=== PATIENT | male | born 1935 | race Caucasian/White ===

== ENCOUNTER 2016-10-18 18:15 | Inpatient (IN) | payer MEDICARE, BC ==
[~2016-10-18] VITALS: Ht 172.7 cm; Wt 77.5 kg
--- NOTE | ~2016-10-18 | ECHO ---
Transthoracic Echocardiography Report (TTE) Demographics Patient Name AMANDA OTT Date of Study 10/21/2016 Patient Number [id number] Visit Number [id number] Date of 1935 Room Number G6231 Gender Male Number Age 81 year(s) Referring Kathe Lake Publisher Assistant Marie RVT, RDCS Physician Rhina Physician Interpreting Meghan Cummings Naphthalene Operator Physician Sakina Horan MD Supervising Ordering Meghan Cummings MD/MLP Physician Nurse Stress Suppression Crew Leader Conclusions Contractility Score Summary Normal Left Ventricular contractility was noted. Summary Normal LV/RV size and systolic function. Moderate concentric left ventricular hypertrophy. Diastolic assessment reveals Grade I diastolic dysfunction. Bubble study performed with no obvious atrial shunting. Small calcific nodule noted on the right coronary cusp of AV, likely secondary to degenerative changes. Procedure Type of Study TTE procedure:2D Echocardiogram, M-Mode, Doppler , Color Doppler. Procedure Date Date: 10/21/2016 Start: 09:43 AM Study Location: Inpatient Portable Technical Quality: Adequate visualization Indications:CVA. Appropriate Use Criteria: 9 Patient Status: Routine HR: 82 bpm BP: 161/79 mmHg M-Mode/2D Measurements LV Diastolic Dimension: 4 cm LV Systolic Dimension: 2.31 cm LV Septum Diastolic: 1.58 cm LV PW Diastolic: 1.21 cm AO Root Dimension: 2.9 cm Cardiac Output: 2.46 l/min AV Cusp Separation: 1.7 cm RV Diastolic Dimension: 2.01 cm LA volume: 7 ml LVOT: 1.7 cm RV Base: 2.54 cm LVOT VTI: 13.2 cm RV Mid: 2.89 cm LV Stroke volume: 29.95 ml TAPSE: 2.39 cm TDI-S': 35.4 cm/s Doppler Measurements AV Peak Velocity: 0.92 m/s MV Peak E-Wave: 0.61 m/s AV Peak Gradient: 3.36 mmHg MV Peak A-Wave: 0.57 m/s AV Mean Gradient: 2 mmHg MV E/A Ratio: 1.07 LVOT Peak Velocity: 0.64 m/s MV P1/2t: 88 msec PV Peak Velocity: 1.05 m/s E' Septal Velocity: 0.07 m/s PV Peak Gradient: 4.41 mmHg E' Lateral Velocity: 0.09 m/s A' Septal Velocity: 0.1 m/s A' Lateral Velocity: 0.11 m/s Findings Left Ventricle Moderate concentric left ventricular hypertrophy. Diastolic assessment reveals Grade I diastolic dysfunction. Right Ventricle Normal right ventricle structure and function. Left Atrium Normal left atrial size. Bubble study performed with no obvious atrial shunting. Right Atrium Normal right atrial size. Mitral Valve Normal mitral valve structure and function. Aortic Valve AV sclerosis. Small calcific nodule noted on the right coronary cusp of AV, likely secondary to degenerative changes. Tricuspid Valve Normal tricuspid valve structure and function. Pulmonic Valve PV is grossly normal. Pericardial Effusion No evidence of pericardial effusion. Epicardial fat pad noted. Pleural Effusion No evidence of pleural effusion. Contractility Score LV regional wall motion:(0-Non visualized 1-Normal 2-Hypokinesis 3-Akinesis 4-Dyskinesis 5-Aneurysm) Signature dtt: GALINA AL dtd: 10/21/16 0943 Physician Self Edit
--- NOTE | ~2016-10-18 | CON ---
PATIENT'S NAME: AMANDA OTT [facility] AGE: 81 Y [address] ROOM: [address] [address] LOCATION: [facility] ADMIT DATE: 10/18/2016 Consultation DISCHARGE DATE: FAMILY PHYSICIAN: PHYSICIAN, UNKNOWN ATTENDING PHYSICIAN: Lake AYOUB DATE OF CONSULTATION: 10/19/2016 DATE AND TIME: 10/19/2016 at 10:45 a.m. CHIEF COMPLAINT: Stroke alert, status post tPA. HISTORY OF PRESENT ILLNESS: The patient is an 81-year-old gentleman who was transferred here from [facility], post tPA. According to the family, the patient was seen shortly before 3 o'clock today. He went down to the mailbox and the family found him down, trying to get out of his car and he states he had sudden weakness in the left extremities. The patient was taken expediently to [place], [place] Emergency Department. He was found to have left lower extremity and left upper extremity weakness around a 3/5 and left facial droop. His CT of head was done, which was negative and his INR was 1. tPA was given. His blood pressure remained stable throughout the treatment. Teleneurology was consulted for the tPA decision. The patient was transferred here for further care. He is currently alert, and oriented x3. He is in no acute distress. He denies headache, vision changes, chest pain, shortness of breath, abdominal pain, nausea, or vomiting, or any visual disturbances. MEDICAL HISTORY: Diabetes mellitus type 2, hypertension, hyperlipidemia. SURGICAL HISTORY: The patient states he has had an ear surgery. FAMILY HISTORY: Brother has diabetes. Sister has diabetes. SOCIAL HISTORY: Denies smoking. He is retired before his halfway age. 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 MEDICATIONS: On the JUL and have been reviewed by me. PATIENT'S NAME: AMANDA OTT [facility] AGE: 81 Y [address] ROOM: [address] [place] [id number] LOCATION: [facility] ADMIT DATE: 10/18/2016 Consultation DISCHARGE DATE: FAMILY PHYSICIAN: PHYSICIAN, UNKNOWN ATTENDING PHYSICIAN: Lake AYOUB REVIEW OF SYSTEMS: All systems have been reviewed and are negative except for what is mentioned in the HPI. PHYSICAL EXAM: VITAL SIGNS: Temperature 98.5, blood pressure 164/86, heart rate 94, respiratory rate 18, and saturating 96% on room air. GENERAL APPEARANCE: The patient is alert and awake in no acute distress. HEENT: Normocephalic and atraumatic. NECK: Supple without JVD. No carotid bruits auscultated. CHEST: Clear to auscultation bilaterally. HEART: Regular rate and rhythm. No murmurs, rubs, or gallops. ABDOMEN: Soft, nontender, nondistended with positive bowel sounds. NEUROLOGICAL: His stroke scale is as such, level of consciousness 0; month and age 0; obeys commands 0; best gaze 1; visual field testing 2; facial paresis 1; motor function left arm 1, right arm 0, left leg 0, right leg 2, limb ataxia 0, sensory 0, language 0, dysarthria 1, extinction and inattention 1. For a total NIH stroke scale of 9. He is alert and oriented x3. His pupils are equal and reactive. Currently, he is bedrest so his gait was not assessed. His language seems fluid and he asked appropriate questions. While I am sitting there dictating, he does appear to be slightly impulsive and tried to get out of bed. DIAGNOSTICS: We do have an LDL which shows a reading of 55. We are going to get an MRI/MRA head and neck. We will get a [address] ASSESSMENT AND PLAN: 1. Stroke. We will continue with the stroke workup, ordering an echo 2D with bubble study. We will also obtain an MRI/MRA head and neck. The LDL is completed for this patient. In addition, we will get PT, OT, and Speech along with Dr. Redding to evaluate the patient. We will follow up on these findings tomorrow. The plan of care was developed in conjunction with Dr. Tilley. It was discussed with the hospitalist group. The patient's sons were in the room and were part of the discussion also. Thank you for the opportunity to participate in this patient's care. If you have any questions, please do not hesitate to notify us. MARIE MCCALLUM APRN FOR ELIS TILLEY MD PP/modl PATIENT'S NAME: AMANDA OTT [facility] AGE: 81 Y [address] ROOM: [place] [address] LOCATION: [facility] ADMIT DATE: 10/18/2016 Consultation DISCHARGE DATE: FAMILY PHYSICIAN: PHYSICIAN, UNKNOWN ATTENDING PHYSICIAN: Lake AYOUB /[id number] d: 10/20/16 1533 t: 10/25/16 1728, CONSULTATION REPORT
--- NOTE | ~2016-10-18 | CON ---
PATIENT'S NAME: AMANDA PETERS [facility] AGE: 81 Y [address] ROOM: [place] [address] LOCATION: [facility] ADMIT DATE: 10/18/2016 Consultation DISCHARGE DATE: FAMILY PHYSICIAN: PHYSICIAN, UNKNOWN ATTENDING PHYSICIAN: Lake AYOUB REFERRING PHYSICIAN: Ceasar Davison MD CARDIOLOGY CONSULT REFERRING PHYSICIAN: SANJAY Blancas. REASON FOR CONSULT: The patient with CVA. HISTORY OF PRESENT ILLNESS: Mr. Peters is a pleasant 81-year-old gentleman, who was transferred here from [place], [place], with stroke-like symptoms, status post tPA. According to the family, the patient had a fall, and he developed weakness in the left upper and lower extremity. He was taken to the Emergency Department. Subsequently, he received tPA. The patient recovered strength in his left upper and lower extremity, however, later developed weakness on the right lower extremity, and again on the left upper and lower extremity. In view of recurrent possible CVA, Cardiology was consulted to look for cardioembolic source for CVA. The patient denied any chest pain. No previous history of CVA prior to these episodes. REVIEW OF SYSTEMS: The patient denied any chest pain. No history of palpitations. No history of shortness of breath. He stated he was physically very active before. No history of nausea or vomiting. No history of diarrhea or constipation. PAST MEDICAL HISTORY: Diabetes mellitus, hypertension, hyperlipidemia. PAST SURGICAL HISTORY: The patient apparently had ear surgery. FAMILY HISTORY: His brother has diabetes and a sister also has diabetes. SOCIAL HISTORY: The patient denied any smoking. No history of recent alcohol abuse. MEDICATIONS: As per MAR. PATIENT'S NAME: AMANDA PETERS [facility] AGE: 81 Y [address] ROOM: [address] [address] LOCATION: [facility] ADMIT DATE: 10/18/2016 Consultation DISCHARGE DATE: FAMILY PHYSICIAN: PHYSICIAN, UNKNOWN ATTENDING PHYSICIAN: Lake AYOUB CURRENT MEDICATIONS: In the hospital include: 1. Hydralazine. 2. Atorvastatin. 3. Insulin. PHYSICAL EXAMINATION: GENERAL: On examination, he is awake, alert, and oriented and in no distress. VITAL SIGNS: His pulse rate is 88 beats per minute, blood pressure is 166/75 mmHg, respiratory rate 16, temperature 97.6. HEENT: His head is atraumatic and normocephalic. The patient appears to have left 7th nerve palsy. NECK: No significant jugular venous distention is present. CARDIOVASCULAR: S1, S2 are audible. They are regular in rate and rhythm. Grade 2/6 ejection systolic murmur is audible. RESPIRATORY: Bilateral vesicular breath sounds are audible. ABDOMEN: Soft, nontender. Bowel sounds are present. EXTREMITIES: Showed no significant pedal edema. NEUROLOGIC: The patient has strength of 4/5 in all 4 extremities. He is awake; however, he is not oriented in time or place. He is oriented in person. He follows simple commands. LABORATORY DATA: Sodium 141, potassium 3.9, chloride 107, CO2 of 24, glucose 200, BUN 13, creatinine 1.1. AST 26, ALT 25, total cholesterol 135, HDL 56, LDL 55. White blood cell count 8.7, hemoglobin 13.5, platelet count 180. IMAGING DATA: MRA and MRI of the brain reported subacute ischemic infarct with hemorrhagic transformation in the right middle cerebral territory, 4.5 cm right frontal infarct, 4.3 cm right parietal infarct, tiny infarct involving right frontal lobe, Precentral gyrus, tiny intraventricular hemorrhage. ASSESSMENT: 1. Acute CVA with right frontal and parietal infarct and small intraventricular hemorrhage. 2. Hypertension. 3. Diabetes mellitus. PLAN: 1. Cardiology was consulted to evaluate for cardiac source of emboli. We will do 2D echocardiogram to evaluate valve and cardiac function. The patient has been having some dysphagia according to the family. We will do swallowing evaluation, and then consider SERGIO for further evaluation. The risks and benefits of SERGIO were explained to the patient and his PATIENT'S NAME: AMANDA PETERS [facility] AGE: 81 Y [address] ROOM: [place] [address] LOCATION: [facility] ADMIT DATE: 10/18/2016 Consultation DISCHARGE DATE: FAMILY PHYSICIAN: PHYSICIAN, UNKNOWN ATTENDING PHYSICIAN: Lake AYOUB, and they are agreeable to proceed. We will consider SERGIO depending on transthoracic echocardiogram findings and following swallowing evaluation. The patient has mild hypertension, however, in view of recent CVA, we will hold off on aggressive antihypertensive medications. Continue to monitor the patient on telemetry. The plan of care was discussed with the patient and his family. We will follow the patient along with you. Thank you for allowing us in taking part in the care of this pleasant patient. MD LLOYD TODD/connie /[id number] d: 10/20/16 2259 t: 11/07/16 1736, CONSULTATION REPORT
--- NOTE | ~2016-10-18 | ECHO ---
Transesophageal Echocardiography Report (SERGIO) Demographics Patient Name AMANDA OTT Date of Study 10/23/2016 Patient Number [id number] Visit Number [id number] Date of 1935 Room Number G6231 Accession Number [id number] Gender Male Age 81 year(s) Referring Kathe Bethea Mathematics Instructor Juvencio Guzman RVT, Physician SIGRID Physician Interpreting Meghan Cummings Vehicle Assembler Physician Supervising Ordering Physician Tone Watts APRN, MD/MLP Nurse Stress Motor Brakeman Conclusions Summary Transesophageal echocardiogram was done under general anesthesia without difficult probe placement . The estimated left ventricular ejection fraction is 60-65%. Moderate concentric hypertrophy. There is no LA or LA appendage thrombus or spontaneous contrast. Aneurysmal interatrial septum. Negative bubble study. Mild mitral regurgitation by color Doppler. Degenerative changes on the mitral valve The aortic valve is mildly sclerotic. There is mild aortic regurgitation by color Doppler. Pulmonary valve is mildly sclerotic The aortic root appears mildly dilated. The maximum diameter measures 3.9 cm. Mild thoracic aorta plaque. Procedure Type of Study SERGIO procedure Procedure Date Date: 10/23/2016 Start: 08:44 AM Study Location: Inpatient Portable Technical Quality: Adequate visualization Indications:CVA. Appropriate Use Criteria: 8 Patient Status: Routine Rhythm: NSR HR: 115 bpm BP: 171/74 mmHg SERGIO Performed By: the attending and the deck scaler Findings Left Ventricle Moderate concentric hypertrophy. Left Atrium There is no LA or LA appendage thrombus or spontaneous contrast. Right Atrium Aneurysmal interatrial septum. Negative bubble study. Mitral Valve Mild mitral regurgitation by color Doppler. Degenerative changes on the mitral valve Aortic Valve The aortic valve is mildly sclerotic. There is mild aortic regurgitation by color Doppler. Pulmonic Valve Pulmonary valve is mildly sclerotic Miscellaneous The aortic root appears mildly dilated. The maximum diameter measures 3.9 cm. Mild thoracic aorta plaque. Signature dtt: SCOTT BROOKS dtd: 10/23/16 0844 Physician Self Edit
--- NOTE | ~2016-10-18 | DS ---
PATIENT'S NAME: AMANDA OTT [facility] AGE: 81 Y [address] ROOM: [place] [address] LOCATION: [facility] ADMIT DATE: 10/18/2016 Discharge Summary DISCHARGE DATE: 10/24/2016 FAMILY PHYSICIAN: Physician, Unknown ATTENDING PHYSICIAN: Lake AYOUB PRIMARY DIAGNOSES: 1. 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 2. Status post thrombolysis with tPA. 3. Intraventricular hemorrhage. 4. Accelerated hypertension. 5. Left hemiplegia. 6. Dyslipidemia. 7. Diabetes mellitus type 2. OPERATIONS/PROCEDURES: MRI scan without contrast performed 10/19/2016 and MRA obtained on the same date demonstrated ischemic areas involving the right lateral frontal lobe and right parietal lobe measuring 4.3 and 4.5 cm respectively. Hemorrhagic transformation with a small intraventricular hemorrhage was also noted. HISTORY OF PRESENTING ILLNESS/REASON FOR REMISSION: Please refer to the H and P dictated 10/18/2016. HOSPITAL COURSE: The patient was admitted to hospital as noted above after being transferred from outside facility following tPA administration for stroke symptoms. The patient was admitted to [facility] as described above. Teleneurology was consulted. The patient had received tPA administration at an outside facility at the direction of Teleneurology there. He was monitored in the ICU here. He was demonstrating left-sided hemiplegia and left-sided neglect. Repeat imaging studies did demonstrate hemorrhagic transformation as described above. He was otherwise hemodynamically stable. No surgical intervention was recommended. He did receive physical therapy, occupational therapy, and speech therapy evaluations. He also had physiatry evaluation and Teleneurology did continue to follow. Because of the imaging findings described above, Neurosurgery was consulted. No indication for surgery was found. His clinical condition gradually improved. He continued to receive supportive cares and clinical monitoring. Blood sugars were managed with insulin per sliding scale protocol. His blood pressures remained moderately hypertensive PATIENT'S NAME: AMANDA OTT [facility] AGE: 81 Y [address] ROOM: [place] [address] LOCATION: [facility] ADMIT DATE: 10/18/2016 Discharge Summary DISCHARGE DATE: 10/24/2016 FAMILY PHYSICIAN: Physician, Unknown ATTENDING PHYSICIAN: Lake AYOUB and were managed with IV hydralazine on an as-needed basis. His regimen was gradually titrated to include beta-buddy therapy and Norvasc therapy. He tolerated that well. By the end of the 6th day of his hospital stay, it was felt he would be stable enough for discharge to the inpatient rehab for continued therapy and restorative care. DISCHARGE INSTRUCTIONS: 1. Diet: ADA 2000 calorie per day as tolerated. 2. Activity: As tolerated. He will have physical therapy, occupational therapy evaluations ongoing. MEDICATIONS: 1. Amlodipine 10 mg p.o. daily. 2. Atorvastatin 80 mg p.o. daily. 3. Insulin NovoLog per mild sliding scale. 4. Levemir insulin 20 units subcu q.h.s. 5. Metoprolol 12.5 mg p.o. b.i.d. 6. Acetaminophen 650 mg p.o. q.6 h. p.r.n. pain or fever. 7. Glucagon 1 mg subcu p.r.n. hypoglycemia. 8. Dextrose 50% 1 amp p.r.n. hypoglycemia. 9. Glucose tabs 16 g p.o. p.r.n. hypoglycemia. FOLLOW UP: He will have follow up on the Inpatient Rehab Service by Dr. Redding and continued follow up and management by the hospitalist team. CONDITION ON DISCHARGE: Fair. Total time spent on discharge process is 45 minutes. MD RADHIKA ADLER/connie /[id number] d: 10/25/16 0424 t: 11/07/16 1812, DISCHARGE SUMMARY
--- NOTE | ~2016-10-18 | HP ---
PATIENT'S NAME: AMANDA OTT [facility] AGE: 81 Y [address] ROOM: [place] [address] LOCATION: [facility] ADMIT DATE: 10/18/2016 History & Physical DISCHARGE DATE: FAMILY PHYSICIAN: PHYSICIAN, UNKNOWN ATTENDING PHYSICIAN: Lake AYOUB DATE OF SERVICE: CHIEF COMPLAINT: Stroke. HISTORY OF PRESENT ILLNESS: The patient is an 81-year-old gentleman, who presents here from [place], [place] with stroke-like symptoms status post tPA. The patient was found down by a mailbox today around 3:00 p.m. According to family, last time he was found normal shortly before that. Apparently, the patient was driving to his mailbox and when he was trying to get out of his car, he had sudden weakness in the left extremities. The patient was taken to the emergency department at [place], [place]. He was found to have left lower extremity and left upper extremity weakness, 3/5 motor strength, and left facial droop. CT head was done, CT head was negative. INR was 1. Blood pressure was stable. Teleneurology was consulted and the patient was given tPA. The patient was transferred here to our facility for further care. The patient is currently alert and oriented, in no acute distress. He denies chest pain, shortness of breath, abdominal pain, nausea, vomiting, weakness, dizziness, and headache. MEDICAL HISTORY: Diabetes mellitus type 2, hypertension, hyperlipidemia. SURGICAL HISTORY: The patient reports that he has some sort of ear surgery. FAMILY HISTORY: Brother has diabetes mellitus. Sister also have diabetes mellitus. SOCIAL HISTORY: Denies smoking. He is retired before his shelter. 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 MEDICATIONS: Has been reconciled currently. REVIEW OF SYSTEMS: All systems have been reviewed and are negative except for what I mentioned in HPI. PATIENT'S NAME: AMANDA OTT [facility] AGE: 81 Y [address] ROOM: [place] [address] LOCATION: [facility] ADMIT DATE: 10/18/2016 History & Physical DISCHARGE DATE: FAMILY PHYSICIAN: PHYSICIAN, UNKNOWN ATTENDING PHYSICIAN: Lake AYOUB PHYSICAL EXAMINATION: VITAL SIGNS: Temperature 98.5, blood pressure 176/96, heart rate 96, respiratory rate 18, and satting 95% on room air. GENERAL APPEARANCE: The patient is alert and awake, in no acute distress. HEAD: Normocephalic and atraumatic. EYES: Extraocular muscles intact. NOSE: No nasal discharge. EARS: No ear discharge. ORAL CAVITY: Moist oral mucosa. NECK: Supple. CHEST: Clear to auscultation bilaterally. HEART: Regular rate and rhythm. No murmurs, rubs, or gallops. ABDOMEN: Soft, nontender, and nondistended. Bowel sounds present. MUSCULOSKELETAL: Range of motion intact. SKIN: Warm to touch. ABDOMEN: Soft, nontender, and nondistended. COMPO CASTER: The patient is alert and oriented x2 not oriented to time. Motor and sensory grossly intact. Upper motor strength 5/5. Lower motor strength 5/5 and visual field intact. LABORATORY DATA: Labs from outside hospital; sodium 142, potassium 4.2, creatinine 1, CO2 of 21, and blood glucose 273. INR 1, hemoglobin 13.6, white blood cell count of 9, and platelet 184. ASSESSMENT AND PLAN: 1. Cerebrovascular accident status post tPA. tPA was given within the window. The patient is currently back to baseline. Motor strength back to normal. Initially, his motor strength in the left extremity was 3/5 in both upper and lower, now is 5/5. No facial droop and visual carlton intact. We will continue tPA. Post tPA treatment will hold the blood pressure below 180. If needed, we will start the patient on nicardipine drip. 2. Repeat CT head in the morning. 3. We will acquire neuro consult via neuro tele. Serial neuro exam. We will keep patient in the ICU for 24 hours. 4. Diabetes mellitus. We will start the patient on SSI with aspart. We will hold oral medication for now. 5. Hypertension. We will blood pressure medication and to keep the systolic blood pressure below 180. If it is high, we will start nicardipine drip. 6. Hyperlipidemia. We will start the patient on Lipitor 80 mg daily. Greater than 70 minutes was spent on patient care. Assessment and plan was discussed with the patient and nephew. All questions were answered. We will PATIENT'S NAME: AMANDA OTT [facility] AGE: 81 Y [address] ROOM: [place] [id number] LOCATION: [facility]ICU ADMIT DATE: 10/18/2016 History & Physical DISCHARGE DATE: FAMILY PHYSICIAN: PHYSICIAN, UNKNOWN ATTENDING PHYSICIAN: Lake AYOUB admit the patient to ICU for post tPA care. MD LIVIER KHANNA/connie /[id number] D: [id number] T: [id number] HISTORY & PHYSICAL
--- NOTE | ~2016-10-18 | CON ---
PATIENT'S NAME: AMANDA OTT [facility] AGE: 81 Y [address] ROOM: [place] [id number] LOCATION: [facility] ADMIT DATE: 10/18/2016 Consultation DISCHARGE DATE: FAMILY PHYSICIAN: PHYSICIAN, UNKNOWN ATTENDING PHYSICIAN: Lake ARCHULETA Consult for Dr. Archuleta, hospitalist. This is an 81-year-old gentleman who tells me he lives alone, but has nieces and nephews close by that can help, was admitted on 10/18/2016 with stroke like symptoms involving left side, upper and lower extremity weakness with left facial droop. As per history and physical, tPA was given and as per history, he was found by his med box unable to get up and was taken to the local hospital. CT scan was done, which showed no gross abnormality. However, his left side upper and lower extremities were at 3/5 muscle strength. He is currently alert, fairly well oriented to the person, but not to the place and time. His voice is clear and not wet. He has left-sided weakness with facial droop. He is apraxic with his mouth and tongue, has left-side neglect also. 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 At the present time, his muscle strength is about 3 to 3+. Left lower extremity a little bit better than left upper extremity. Otherwise deep tendon reflexes are present and equal throughout. He has good bowel and bladder control. Chest is clinically clear. Heart regular, sinus rhythm. No similar history in past. MEDICATIONS: As follows: 1. Hydrogel 0.9%. 2. Lipitor. 3. Insulin as per protocol, mild scale. 4. Glucagon. 5. Dextrose. 6. Glucose. 7. Nitropress. 8. Cardene. PATIENT'S NAME: NAMRATA [facility] AGE: 81 Y [address] ROOM: [address] [place] [id number] LOCATION: [facility] ADMIT DATE: 10/18/2016 Consultation DISCHARGE DATE: FAMILY PHYSICIAN: PHYSICIAN, UNKNOWN ATTENDING PHYSICIAN: Laek ARCHULETA ASSESSMENT AND PLAN: At the present time, the patient will be started on PT, OT, Speech. I feel that this man will benefit from intensive rehab, for about 2 weeks or so, aiming to discharge modified independent to home. Thank you for this referral. All the above was explained to him and I am ready to explain to his family. MD KATARZYNA HERNADEZ/modl /[id number] d: 10/20/16 1139 t: 10/22/16 0714, CONSULTATION REPORT
[2016-10-18 19:51] LABS: BASOPHIL # 0.1 K/uL (0.0-0.2); BASOPHIL % 0.9 %; EOSINOPHIL # 0.1 K/uL (0.0-0.5); EOSINOPHIL % 1.1 %; HEMATOCRIT 40.4 % (33.0-50.0); HEMOGLOBIN 13.7 g/dL (11.0-16.0); IMMATURE GRANULOCYTE % 0.3 %; LYMPHOCYTE # 1.5 K/uL (0.8-4.0); LYMPHOCYTE % 15.1 %; MCH 29.3 pg (27.0-34.0); MCHC 33.9 gm/dL (32.0-36.5); MCV 86.5 fl (83.0-98.0); MONOCYTE # 0.9 K/uL (0.0-1.0); MONOCYTE % 8.9 %; MPV 11.8 fl (9.4-12.4); NEUTROPHIL # (ANC) 7.3 K/uL (1.4-9.0); NEUTROPHIL % 73.7 %; NRBC % 0 /100WBC (0-0.00); PLATELET COUNT 187 K/uL (150-450); RBC 4.67 M/uL (3.50-5.50); RDW-CV 13.1 % (11.9-14.6); WBC 9.9 K/uL (4.0-11.0)
[2016-10-18 20:10] LABS: ALBUMIN 3.8 gm/dL (3.5-5.0); CALCIUM 9.2 mg/dL (8.5-10.5); CREATININE 1.2 mg/dL (0.6-1.3); TOTAL BILIRUBIN 0.5 mg/dL (0.0-1.5); TOTAL PROTEIN 7.1 g/dL (6.0-8.4)
--- NOTE | 2016-10-19 04:47 | NUR ---
Significant Event: Patient admitted to ICU at 1901 via air transport. A/O on admission, following commands, slight left sided weakness. Slight drift to LUE et LLE. Speech slightly slurred, slight left facial drooping. Left sided gaze neglect. TPa administered in flight, gtt finished prior to arrival. Improvement noted t/o shift in regards to left sided drift et weakness. SR, HR in the 70s, SBP 130-170s. Afebrile. Continues on RA with SpO2 mid 90s. Failed bedside nurse swallow study, remains NPO. Follow up: Continue. CT 24hrs post TPa administration.
--- NOTE | 2016-10-19 07:45 | NUR ---
OT: Will evaluate on 10/20/16 as able d/t s/p TPA 10/18/16 Jennifer OTR/L
--- NOTE | 2016-10-19 08:24 | NUR ---
ROUTINE CONSULT FOR CVA ED NOTED. WILL COMPLETE APPROPRIATE PRIOR TO DISMISSAL.
[2016-10-19] MEDS ORDERED: AMARYL4 MG PO (10:15)
[2016-10-19] MEDS ORDERED: TENORMIN50 MG PO (10:15)
[2016-10-19] MEDS ORDERED: ZOCOR20 MG PO (10:15)
[2016-10-19] MEDS ORDERED: ZESTRIL30 MG PO (10:16)
[2016-10-19] MEDS ORDERED: GLUCOPHAGE500 MG PO (10:16)
[2016-10-19] MEDS ORDERED: NORVASC5 MG PO (10:17)
--- NOTE | 2016-10-19 15:22 | NUR ---
Significant Event: PT A&O x3, forgetful. VSS, on room air. Follows commands, slight weakness to L)arm and R)leg, visual defecits. Speech slightly slurred. Briefs on for incontinence. Remains NPO. Is to have MRI and CT at 1700. Follow up:
[2016-10-19 19:51] LABS: BASOPHIL # 0.1 K/uL (0.0-0.2); BASOPHIL % 0.9 %; EOSINOPHIL # 0.1 K/uL (0.0-0.5); EOSINOPHIL % 1.5 %; HEMATOCRIT 40.5 % (33.0-50.0); HEMOGLOBIN 13.6 g/dL (11.0-16.0); IMMATURE GRANULOCYTE % 0.4 %; LYMPHOCYTE # 1.5 K/uL (0.8-4.0); LYMPHOCYTE % 19.5 %; MCHC 33.6 gm/dL (32.0-36.5); MCV 86.4 fl (83.0-98.0); MONOCYTE # 0.7 K/uL (0.0-1.0); MONOCYTE % 9.2 %; MPV 11.4 fl (9.4-12.4); NEUTROPHIL # (ANC) 5.4 K/uL (1.4-9.0); NEUTROPHIL % 68.5 %; NRBC % 0 /100WBC (0-0.00); PLATELET COUNT 177 K/uL (150-450); RBC 4.69 M/uL (3.50-5.50); RDW-CV 12.9 % (11.9-14.6); WBC 7.9 K/uL (4.0-11.0)
[2016-10-19 19:59] LABS: INR - (THERAPEUTIC) 1.03 (0.92-1.07); PROTIME 10.8 SECONDS (9.8-11.4); PTT 26 SECONDS (25-32)
[2016-10-19 20:13] LABS: ALBUMIN 3.6 gm/dL (3.5-5.0); ALK PHOS 70 IU/L (33-138); ALT 25 IU/L (12-78); ANION GAP 13.9 (10.0-19.0); AST 26 IU/L (10-40); BLOOD UREA NITROGEN 12 mg/dL (6-24); CALCIUM 8.9 mg/dL (8.5-10.5); CHLORIDE 108 mMol/L (96-110); CO2 25 mMol/L (22-32); ESTIMATED GFR (MDRD EQUATION) > 60; POTASSIUM 3.9 mMol/L (3.7-5.1); SODIUM 143 mMol/L (135-145); TOTAL PROTEIN 6.9 g/dL (6.0-8.4)
[2016-10-19 20:15] LABS: TOTAL BILIRUBIN 0.8 mg/dL (0.0-1.5)
--- NOTE | 2016-10-20 02:27 | NUR ---
Patient arrived to unit at 2100 accompanied by staff. S/P tPA at 1700 10/19. VSS. Afebrile. Alert and oriented x3-slow to react and needs cueing. Can be impulsive at times. QUINAULT-does have a left cochlear implant. NPO. Heavy 2A. Room air clear. 98.0-69-95%-153/70-0/10-18. HI/LO bed. Recieved report from ICU nurse Kelle.
--- NOTE | 2016-10-20 04:57 | NUR ---
Significant Event: FIRST ASSESSMENT PATIENT WAS ALERT AND ORIENTED X3. SECOND ALERT TO PERSON/PLACE. THIRD ALERT AND ORIENTED TO PERSON. FOLLOWS ALL COMMANDS-DOES NEED CUEING. BECAME MORE RESTLESS THROUGHOUT THE NIGHT-COOPERATIVE. LEFT SIDED WEAKNESS. NIHSS-8. DENIES DAWSON AND PAIN. SR-NING. KEEP SBP IN THE RANGE OF 130-160'S, PRN HYDRALAZINE. EDEMA TO LOWER EXTREMITIES. ROOM AIR-CLEAR. NPO-NEED TO HAVE DIET ADDRESSED. BEDREST-NEED TO HAVE ACTIVITY ADDRESSED. PIV's IN THE RIGHT FA AND LEFT AC-SL'D. MULTIPLE ABRASIONS AND BRUISING. H&H'S-CALL IF HGB IS LESS THAN OR EQUAL TO 7. ACCU CHECKS ACHS-MILD SLIDING SCALE. Follow up: 2D ECHO WITH BUBBLE STUDY TODAY.
[2016-10-20 05:57] LABS: BASOPHIL # 0.1 K/uL (0.0-0.2); EOSINOPHIL # 0.1 K/uL (0.0-0.5); EOSINOPHIL % 1.5 %; HEMATOCRIT 41.4 % (33.0-50.0); HEMOGLOBIN 13.9 g/dL (11.0-16.0); IMMATURE GRANULOCYTE % 0.2 %; LYMPHOCYTE # 1.6 K/uL (0.8-4.0); LYMPHOCYTE % 18.7 %; MCHC 33.6 gm/dL (32.0-36.5); MCV 86.4 fl (83.0-98.0); MONOCYTE # 0.8 K/uL (0.0-1.0); MONOCYTE % 9.1 %; MPV 11.3 fl (9.4-12.4); NEUTROPHIL % 69.5 %; NRBC % 0 /100WBC (0-0.00); PLATELET COUNT 180 K/uL (150-450); RBC 4.79 M/uL (3.50-5.50); RDW-CV 12.8 % (11.9-14.6); WBC 8.7 K/uL (4.0-11.0)
[2016-10-20 06:09] LABS: ANION GAP 13.9 (10.0-19.0); BLOOD UREA NITROGEN 13 mg/dL (6-24); CALCIUM 8.6 mg/dL (8.5-10.5); CHLORIDE 107 mMol/L (96-110); CO2 24 mMol/L (22-32); CREATININE 1.1 mg/dL (0.6-1.3); ESTIMATED GFR (MDRD EQUATION) > 60; POTASSIUM 3.9 mMol/L (3.7-5.1); SODIUM 141 mMol/L (135-145)
[2016-10-20 08:11] LABS: HEMATOCRIT 39.3 % (33.0-50.0); HEMOGLOBIN 13.5 g/dL (11.0-16.0)
--- NOTE | 2016-10-20 13:57 | NUR ---
Significant Event: PT ALERT; DISORIENTED TO PLACE/YEAR. APHASIC. PERRLA. FOLLOWS COMMANDS WITH CUEING. STROKE SCALE 8. L)SIDE REMAINS WEAKER THAN R)SIDE; L)EYE/FACIAL DROOP; L)VISION IMPAIRMENT. MOVES ALL EXTREMITIES. VITAL SIGNS STABLE; TO KEEP SBP BETWEEN 130-160. LOWER EXTREMITY EDEMA. INCONTINENT URINE. LAST BM ON 10/17/16. CARDIAC DIET ORDERED WITH THIN LIQUIDS THIS AFTERNOON. ORDER WAS JUST WRITTEN THAT PT MAY BE ACTIVITY TOLERATED; HAS NOT BEEN OUT OF BED. HEAVY 2-ASSIST TO TURN IN BED. AC/HS ACCUCHECKS WITH MILD SLIDING SCALE. BILATERAL CALF PUMPS ON. IV TO R)FA AND L)AC SALINE LOCKED. SKIN TEARS TO R)ARM/HAND; L)HEAD ABRASION; SCATTERED BRUISING. DENIES ANY PAIN. HI-LO BED IN PLACE; HAS NOT BEEN IMPULSIVE THIS SHIFT. Follow up: CONTINUE TO MONITOR
[2016-10-21 06:05] LABS: BASOPHIL # 0.1 K/uL (0.0-0.2); BASOPHIL % 0.7 %; EOSINOPHIL # 0.1 K/uL (0.0-0.5); EOSINOPHIL % 0.9 %; HEMATOCRIT 42.1 % (33.0-50.0); HEMOGLOBIN 14.5 g/dL (11.0-16.0); IMMATURE GRANULOCYTE % 0.3 %; LYMPHOCYTE # 1.6 K/uL (0.8-4.0); LYMPHOCYTE % 18.5 %; MCH 29.4 pg (27.0-34.0); MCHC 34.4 gm/dL (32.0-36.5); MCV 85.4 fl (83.0-98.0); MONOCYTE % 11.4 %; MPV 11.6 fl (9.4-12.4); NEUTROPHIL % 68.2 %; NRBC % 0 /100WBC (0-0.00); PLATELET COUNT 194 K/uL (150-450); RBC 4.93 M/uL (3.50-5.50); RDW-CV 12.6 % (11.9-14.6); WBC 8.8 K/uL (4.0-11.0)
[2016-10-21 06:22] LABS: ANION GAP 13.9 (10.0-19.0); BLOOD UREA NITROGEN 17 mg/dL (6-24); CALCIUM 8.9 mg/dL (8.5-10.5); CHLORIDE 107 mMol/L (96-110); CO2 22 mMol/L (22-32); CREATININE 1.1 mg/dL (0.6-1.3); ESTIMATED GFR (MDRD EQUATION) > 60; POTASSIUM 3.9 mMol/L (3.7-5.1); SODIUM 139 mMol/L (135-145)
--- NOTE | 2016-10-21 07:20 | NUR ---
Significant Event: Patient is alert and oriented to self. Does follow commands with cueing. Left sided weakness-slight left eye/facial droop. Denies DAWSON, pain, and N/T. PERRLA. MINTO. Sinus-dannie, keep SBP between 130-160, 5mg PRN hydralazine given one time. Room air. Cardiac diet. Last BM 10/20-bowels are active x4. Will use urinal and is incontinent. Heavy 2A. PIV's in L) AC and R) FA-sl'd. Accu checks ACHS-mild sliding scale. Follow up:2D echo. GIRP when ready.
--- NOTE | 2016-10-21 16:14 | NUR ---
ULTRA HIGH FALL RISK TANANA Significant Event: A/O X1, forgetful, 1 assist/gait belt/walker, ambulates in portillo w/ PT, up in chair, needs cueing, follows commands, L)sided weakness, L)vision impaired, good appetite. incontinent at times, NIHSS=9, ECHO/Bubble Study today, luther D/I to skin tears to LUE, saline lock R)FA & L)AC, family @ bedside today, Follow up: NPO p MN for SERGIO accuchecks, plan for GIRP when ready
--- NOTE | 2016-10-22 05:00 | NUR ---
Significant Event: Patient is alert and oriented to person. Does occassionally know who the president is. Follows commands with continous cueing. VSS. PERRLA. NIHSS-6. Left visual impairment and left sided weakness. Slightly apashic. Sinus rhythm. HTN- to keep SBP between 130-160. 2+ edema and thready pulses. Room air. Diabetic diet-accu checks ACHS-mild sliding scale. Last BM 10/21-bowels are active x4. Occassionally incontinent of urine. Up with 1-2a GB and walker. PIV in R) post FA. Skin tears to left hand, FA, and elbow-dressings are C/D/I. Takes pills whole with water. Follow up: GIRP when ready.
--- NOTE | 2016-10-22 12:25 | NUR ---
Significant Event:PT IS ALERT TO PERSON. WILL OCCASIONALLY TELL ME HE IS IN [place]. KNOWS HE IS IN A HOSPITAL. VISION IMPAIRMENT NOTED IN LEFT SIDE. NIHSS 8. FOLLOWS COMMANDS. NEEDS LOTS OF QUES FOR DIRECTIONS. CLEAR LUNG SOUNDS ON RA. ACTIVE BS. IV SL'D. SKIN TEAR X3 TO LEFT ARM. ACHS ACCU CHECKS. TO HAVE SERGIO TOMORROW. NPO AT [place]. Follow up:ALARMS
--- NOTE | 2016-10-22 14:18 | NUR ---
Introduced self and role of care management to patient. He lives in [facility] by himself. He states that he is normally able to do all his own ADL's. He states that he has family that live close by that assist if needed. We discussed discharge plans. I explained that I could get him to our inpatient rehab unit on 10/24. He is in agreement with [facility]. I did ask if I needed to call and updated any of his family. He stated "no I will be talking with them later today." He denies any needs at this time. Will continue to follow.
--- NOTE | 2016-10-23 05:25 | NUR ---
Significant Event: Patient is alert and oriented to person. Follows commands with cueing. VSS. Denies DAWSON, pain, or N/T. PERRLA. NIH-7. [place]. SR- to keep SBP between 130-160. This shift patient was tachycardic-called hospitalist and got the order to give scheduled lopressor with a SBP of 135 d/t the HR in the one-teen's. Heart rate has been WNL since. Room air. NPO since midnoc. Last BM 10/22-active x4. 1A gb/walker. PIV in right FA. Follow up: 10/23-SERGIO. Plan is GIRP on .
[2016-10-23 06:37] LABS: ALBUMIN 3.3 gm/dL (3.5-5.0); ANION GAP 11.9 (10.0-19.0); BLOOD UREA NITROGEN 19 mg/dL (6-24); CALCIUM 8.4 mg/dL (8.5-10.5); CHLORIDE 109 mMol/L (96-110); CO2 23 mMol/L (22-32); CREATININE 1.1 mg/dL (0.6-1.3); ESTIMATED GFR (MDRD EQUATION) > 60; POTASSIUM 3.9 mMol/L (3.7-5.1); SODIUM 140 mMol/L (135-145)
--- NOTE | 2016-10-23 13:54 | NUR ---
Significant Event:PT IS ALERT TO SELF. NIHSS 6. NO C/O NUMBNESS OR TINGLING. FOLLOWS COMMANDS. L) VISION IMPAIRED. UP WITH 1A GB WALKER. CLEAR LUNG SOUNDS ACTIVE BS. HAD SERGIO TODAY. FAMILY STATED THE MD TOLD HIM EVERYTHING WAS OKAY. ADA DIET. ACHS ACCU CHECKS. INCREASED NORVASC TODAY. PLANS FOR GIRP TOMORROW. Follow up:ALARMS
--- NOTE | 2016-10-23 14:35 | NUR ---
A-SCREENED D/T LOS PLAN TO D/C TO GIRP TOMORROW HT: 68 IN. WT: 78.4 KG. BMI: 86.6 LABS REVIEWED; ALB 3.3 MEDS: LEVEMIR, NOVOLOG (MILD SS), APRESOLINE DIET RX: DIABETIC. PO INTAKE 50-100%; AVG 88% SINCE ADMIT EST NUTR NEEDS: 2588-5851 KCALS (25-30 KCALS/KG) 78-86 GM PROTEIN (1.0-1.1 GM/KG) 1 ML FLUID/KCAL D-NOT AT NUTRITION RISK; NO NUTRITION DX IDENTIFIED I-CONTINUE W/CURRENT DIET RX M/E-WILL ASSIST NEEDED
--- NOTE | 2016-10-24 03:46 | NUR ---
Significant Event:Patient alert and oriented to self, disoriented to place/time. Follows commands, but needs frequent cueing. Aphasic at times. NIHSS 6. Up with hands on 1 assist/gb/walker. No c/o pain. Denies DAWSON. Moves all extremeties spontaneously and to command. Left side slightly weaker than right. Left side facial droop. PIV saline locked rt forearm. Contient and incontient at times. Impulsive at times. On hi/lo bed. Accuchecks ac/hs with hs sugar of 229. Follow up:Probable GIRP today.
--- NOTE | 2016-10-24 07:47 | NUR ---
PATIENT IS 81 YEAR OLD MALE. 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 WHEN HE WAS GETTING HIS MAIL HE HAD FALLEN. HAD BEEN HAVING LEFT SIDE WEAKNESS AND LEFT FACIAL DROOP HAD BEEN NOTED. WAS GIVEN TPA AT PREVIOUS HOSP[facility] AND THEN TRANSFERED HERE. WHERE IT WAS FOUND THAT THE PATIENT HAD A BLEED WELL. IN ICU. NO SURGERY NEEDED SO THEN TRANSFERED TO NTU. HE IS ALERT TO PERSON ONLY. FORGETFUL. HAD L) VISION IMPAIRMENT. DOES NOT C/O NUMBNESS OR TINGLING. LEFT ARM AND LEG ARE SLIGHTLY WEAKER. DOES FOLLOW COMMANDS BUT NEEDS CUEING. NIHSS TODAY WAS A 6. CLEAR LUNG SOUNDS ON RA ACTIVE BS. BM YESTERDAY. CONTINENT/ INCONTINENT. UP 1A GB WALKER HAND ON. HEALING SKIN TEAR TO LEFT FOREARM AND HAND. ABRASION TO LEFT SHOULDER, LEFT SIDE HEAD AND L) HIP. ACHS ACCUCHECKS. PLANS FOR GIRP TODAY
== END 2016-10-24 10:09 | DRG 64 ==
LOC: GICU 19:16 → GNTU 19:16
PROVIDERS: Family Medicine; Physician Assistant; ADMIT Internal Medicine
PROC: F00ZJWZ Instrumental Swallowing and Oral Function Assessment using Swallowing Equipment (ICD-10-PCS; principal; 2016-10-19)
PROC: B246ZZZ Ultrasonography of Right and Left Heart (ICD-10-PCS; 2016-10-21)
PROC: B246ZZ4 Ultrasonography of Right and Left Heart, Transesophageal (ICD-10-PCS; 2016-10-23)
DX: I63.411 Cerebral infarction due to embolism of right middle cerebral artery (principal); I61.5 Nontraumatic intracerebral hemorrhage, intraventricular; G81.94 Hemiplegia, unspecified affecting left nondominant side; E78.5 Hyperlipidemia, unspecified; I10 Essential (primary) hypertension; E11.65 Type 2 diabetes mellitus with hyperglycemia; Z92.82 Status post administration of tPA (rtPA) in a different facility within the last 24 hours prior to admission to current facility; I69.392 Facial weakness following cerebral infarction
CPT/HCPCS: J0360; J7030

== ENCOUNTER → 2016-10-18 | Outpatient (CLI) | payer MEDICARE, BC ==
[~2016-10-18] MED LIST: AMARYL4 MG PO; ASPIRIN (CHILDR81 MG PO; GLUCOPHAGE500 MG PO; NORCO 5-325 TA1 EACH PO; NORVASC5 MG PO; TENORMIN50 MG PO; ZESTRIL30 MG PO; ZOCOR20 MG PO
== END | disposition disaster alternative care site (69) ==
LOC: GAIR 18:20
DX: I63.9 Cerebral infarction, unspecified (principal); E11.9 Type 2 diabetes mellitus without complications; I10 Essential (primary) hypertension; R53.1 Weakness; R29.810 Facial weakness; R26.89 Other abnormalities of gait and mobility
CPT/HCPCS: A0422; A0431; A0436; J2405

== ENCOUNTER 2016-10-24 10:24 | Inpatient (IN) | payer MEDICARE, BC ==
[~2016-10-24] VITALS: Ht 172.7 cm; Wt 75.6 kg
--- NOTE | ~2016-10-24 | CON ---
PATIENT'S NAME: PEDRO OTT [facility] AGE: 81 Y [address] ROOM: [address] [place], [place] [address] LOCATION: [facility]IRP ADMIT DATE: 10/24/2016 Consultation DISCHARGE DATE: 11/20/2016 FAMILY PHYSICIAN: Physician, Unknown ATTENDING PHYSICIAN: Tito Carranza DATE OF CONSULTATION: 11/19/2016 REFERRING PHYSICIAN: Lake Archuleta MD Team members reporting include Dr. Carranza; Torri Barlow, outreach and education social worker, Gosia Bellamy RN; Destiny Jaramillo, PT; Linda Mathias, PT; Mary Kate Ward, OT; Elidia Lee, Speech Therapy; Lizette Arthur, therapeutic rec; and Sister Malini Salmeron, pastoral Care. CURRENT STATUS: Pedro is an 81-year-old man, admitted to our inpatient rehab unit following a CVA. He is continent of bowel, occasionally incontinent of bladder. No skin or pain issues. He is on a consistent carbohydrate diet. Intake is good. The patient can complete all of his transfers at standby. He can ambulate 300 feet at standby to contact guard assistance with tactile cues as well as verbal cues. He can climb 12 stairs with 2 railings at contact guard assistance. He scored a 34 on the Staton balance test. He has met 2/5 short- term PT goals. The patient can dress his upper and lower body at minimal assistance; grooming, standby; bathing, contact guard assistance; toilet and shower transfers, contact guard assistance; and toileting, contact guard assistance. He continues to have left inattention. He has met 2/13 long-term OT goals. The patient's comprehension is at minimal assistance. Language and expression, standby. Memory, max to moderate assistance, and problem solving, minimal assistance. His car transfers are currently at standby to contact guard assistance. He has been very open to pastoral care. DISCHARGE PLAN: The patient is receiving 3 hours of PT, OT, and speech Friday through Friday. The patient has daily rehab, nursing, and physiatry involvement as well as therapeutic recreational services 4 days per week. The patient has shown functional improvement and is progressing. Please see his plan of care for specific goals. Plan is for patient to discharge on November 20, 2016. The patient is going to [facility] in [place], [place] for swing bed. TORRI BARLOW FOR TITO CARRANZA MD PATIENT'S NAME: PEDRO OTT [facility] AGE: 81 Y [address] ROOM: [place] [address] LOCATION: [facility] ADMIT DATE: 10/24/2016 Consultation DISCHARGE DATE: 11/20/2016 FAMILY PHYSICIAN: Physician, Unknown ATTENDING PHYSICIAN: Tito Carranza TD/evelynl /[id number] d: 12/06/162320 t: 12/23/16 1411, CONSULTATION REPORT
--- NOTE | ~2016-10-24 | HP ---
PATIENT'S NAME: AMANDA OTT [facility] AGE: 81 Y [address] ROOM: [place] [address] LOCATION: [facility] ADMIT DATE: 10/24/2016 History & Physical DISCHARGE DATE: FAMILY PHYSICIAN: PHYSICIAN, UNKNOWN ATTENDING PHYSICIAN: Elvira Redding DATE OF SERVICE: This 81-year-old gentleman is admitted for continuous medical treatment and intensive rehabilitation. 1. Unstable gait. 2. Dependent in activities of daily self-care. 3. 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 Admitted for continuous medical treatment and intensive rehabilitation. He is, at the present time, very alert and oriented. Vitals on admission, blood pressure 160/70, temperature 98.7, pulse 88, and respiration rate 18. He is 5 feet 8 inches tall and weighs 77.5 kg. ALLERGIES: NO KNOWN DRUG ALLERGIES. PER HISTORY, HE HAD SUDDEN ONSET OF LEFT-SIDED WEAKNESS OF UPPER AND LOWER EXTREMITY WITH LEFT FACIAL DROOP, AND HE WAS, PER HISTORY, GIVEN TPA; HOWEVER, HE WAS FOUND TO HAVE A TRANSFORMATION TO RIGHT MIDDLE CEREBRAL ARTERY DISTRIBUTION OF HEMORRHAGIC STROKE ALSO. HE IS, AT THE PRESENT TIME, SHOWING MARKED FATIGUE WITH DIFFICULTY TO TOLERATE ACTIVITY. HOWEVER, HE REQUIRES FREQUENT CUING FOR THE TASK AT HAND. HE HAS DIFFICULTY STANDING AND WALKING AT THE PRESENT TIME. PAST MEDICAL HISTORY: 1. Diabetes, type 2. 2. Hypertension. 3. Dyslipidemia. At the present time, he is on ADA 1800-calorie regular-consistency diet. In a.m., we will send for CBC, CMS, prealbumin, Accu-Chek a.c. and h.s., and hemoglobin A1c. He will be put on PT, OT, and speech 3 hours per day, 15 hours per week, for the coming about maybe 2 to 3 weeks, aiming to discharge home at [facility]. PATIENT'S NAME: AMANDA OTT [facility] AGE: 81 Y [address] ROOM: [place] [address] LOCATION: [facility] ADMIT DATE: 10/24/2016 History & Physical DISCHARGE DATE: FAMILY PHYSICIAN: PHYSICIAN, UNKNOWN ATTENDING PHYSICIAN: Elvira Redding MEDICATIONS: He is, at the present time, on the following medications: 1. Norvasc 10 mg p.o. daily. 2. Lipitor 80 mg p.o. daily. 3. NovoLog insulin sliding scale per protocol. 4. Levemir 20 units subcu at bedtime. 5. Lopressor 12.5 mg p.o. twice daily. 6. Tylenol 650 q.6 hours, do not exceed acetaminophen 4 g q.24 hours. 7. Dextrose 50% 25 mL IV p.r.n. for hypoglycemia. 8. Glucagon 1 mg subcu for hypoglycemia p.r.n. 9. Glucose 16 g p.o. for hypoglycemia p.r.n. 10. Lovenox was added upon admission on 10/24/2016 at 60 mg subcu daily. At the present time, we will put on intensive rehab, PT, OT, and speech 3 hours per day, 15 hours per week, for the coming 2 to 3 weeks, aiming to discharge on modified independence, and follow on outpatient basis. All the above was explained to him in detail. He verbalized understanding and agreement. ELVIRA REDDING MD WMS/modl /[id number] D: [id number] T: [id number] HISTORY & PHYSICAL
--- NOTE | ~2016-10-24 | CON ---
PATIENT'S NAME: PEDRO OTT [facility] AGE: 81 Y [address] ROOM: [place] [address] LOCATION: [facility] ADMIT DATE: 10/24/2016 Consultation DISCHARGE DATE: FAMILY PHYSICIAN: PHYSICIAN, UNKNOWN ATTENDING PHYSICIAN: Tito Carranza DATE OF CONSULTATION: 11/05/2016 REFERRING PHYSICIAN: Lake AYOUB MD Team members reporting include Dr. Carranza; Torri Barlow, social media content manager; Melissa Zuluaga, RN; Linda Mathias, PT; Destiny Jaramillo, PT; Mary Kate Ward, OT; Elidia Lee, Speech Therapy; Lizette Arthur, therapeutic rec; and Sister Malini Potts, Pastoral Care. CURRENT STATUS: Pedro is an 81-year-old man, admitted to our inpatient rehab unit following a stroke with left facial droop. He does have some apraxia. The patient is incontinent of bowel and bladder. No skin or pain issues. He is on a consistent carbohydrate diet. Continues Glucerna every day to maintain nutritional status. The patient can transfer sit to supine and supine to sit at standby with extra cues and time. [id number] standby assistance with modeling done. He is able to ambulate 150 feet with a front-wheeled walker at contact guard assistance. Has difficulty turning. He can climb 12 stairs with 2 railings at contact guard assistance and cues. He scored a 28/56 on the Staton Balance test. He has met 4/7 short-term PT goals. The patient can dress his upper body at standby; lower body, min; grooming, standby; bathing, contact guard assistance; toilet and shower transfers, contact guard assistance; and toileting, contact guard assistance. Home management tasks are currently at contact guard assistance. He was able to make toast and did some gardening and watering plants. He has met 3/5 short-term OT goals. The patient's comprehension is at minimal assistance. Language and expression, standby. Memory, max to moderate assistance. Problem solving, needs cues for verbal reasoning. The patient can complete car transfers at contact guard assistance. He has been given a memory book. Visual scanning when they took him out for his car transfer and a ride in the car were poor. The patient is open to Pastoral Care. No pharmacy concerns at this time. DISCHARGE PLAN: The patient is receiving 3 hours of PT, OT, and Speech Friday through Friday. The patient has daily rehab, nursing, and physiatry involvement as well as therapeutic recreational services 4 days per week. The patient has shown functional improvement and is progressing. Please see his plan of care for specific goals. Plan is for the patient to discharge in approximately 2 weeks. Plan is for the patient to discharge to a skilled level of care. PATIENT'S NAME: PEDRO OTT [facility] AGE: 81 Y [address] ROOM: [place] [address] LOCATION: [facility] ADMIT DATE: 10/24/2016 Consultation DISCHARGE DATE: FAMILY PHYSICIAN: PHYSICIAN, UNKNOWN ATTENDING PHYSICIAN: Tito Carranza TORRISARAH BARLOW FOR TITO CARRANZA MD TD/modl /[id number] d: 11/18/161946 t: 12/06/16 1235, CONSULTATION REPORT
--- NOTE | ~2016-10-24 | CON ---
PATIENT'S NAME: PEDRO OTT [facility] AGE: 81 Y [address] ROOM: [place] [address] LOCATION: [facility] ADMIT DATE: 10/24/2016 Consultation DISCHARGE DATE: FAMILY PHYSICIAN: PHYSICIAN, UNKNOWN ATTENDING PHYSICIAN: Tito Carranza DATE OF CONSULTATION: 11/12/2016 REFERRING PHYSICIAN: Lake AYOUB MD Team members reporting include Dr. Carranza; Torri Barlow, web content & social media manager; Hawa Childers RN; Destiny Jaramillo, PT; Linda Mathias, PT; Mary Kate Ward, OT; Elidia Lee, Speech Therapy; Lizette Arthur, therapeutic rec; and Sister Malini Potts pastoral Care. CURRENT STATUS: Pedro is an 81-year-old man, admitted to our inpatient rehab unit following a CVA. The patient is on a consistent carbohydrate diet. He is continuing his Glucerna every day to maintain his nutritional status. He can transfer sit to supine and supine to sit at standby; sit to stand, standby, and bed to chair, chair to bed, standby assistance. He is walking 300 feet with a front-wheeled walker at standby assistance. Overall, the patient's cognition is severely impaired. He can climb 12 stairs with 2 railings at contact guard assistance. He needs manual help to go around corners when he is walking. He has met 2/5 short-term PT goals. The patient can dress his upper body at standby; lower body, minimal. Grooming contact guard assistance to standby. Bathing contact guard assistance. Toileting contact guard assistance. He does have left inattention. He perseverates at times. Comprehension is at minimal to moderate assistance. Language and expression, minimal to moderate assistance. Memory, moderate assistance. Car transfers are currently at contact guard assistance. He has difficulty distinguishing between his left and right and his recall is poor. He has been open to pastoral care. No pharmacy concerns. DISCHARGE PLAN: The patient is receiving 3 hours of PT, OT, and speech Friday through Friday. The patient has daily rehab, nursing, and physiatry involvement as well as therapeutic recreational services 4 days per week. The patient has shown functional improvement in his progressing. Please see his plan of care for specific goals. Plan is for the patient to discharge in approximately 7 days. Plan is for the patient to go to a intermediate facility closer to home near [place], [place]. TORRI BARLOW FOR TITO CARRANZA MD PATIENT'S NAME: PEDRO OTT [facility] AGE: 81 Y [address] ROOM: [place] [address] LOCATION: [facility] ADMIT DATE: 10/24/2016 Consultation DISCHARGE DATE: FAMILY PHYSICIAN: PHYSICIAN, UNKNOWN ATTENDING PHYSICIAN: Tito Carranza TD/evelnyl /[id number] d: 11/18/162003 t: 12/06/16 1237, CONSULTATION REPORT
--- NOTE | ~2016-10-24 | CON ---
PATIENT'S NAME: PEDRO OTT [facility] AGE: 81 Y [address] ROOM: [place] [address] LOCATION: [facility] ADMIT DATE: 10/24/2016 Consultation DISCHARGE DATE: FAMILY PHYSICIAN: PHYSICIAN, UNKNOWN ATTENDING PHYSICIAN: Tito Carranza DATE OF CONSULTATION: 10/29/2016 REFERRING PHYSICIAN: [place] Team members reporting include Dr. Carranza; Torri Barlow, social studies teacher; Melissa Zuluaga RN; Destiny Jaramillo, PT; Linda Mathias, PT; Mary Kate Ward, OT; Elidia Lee, Speech Therapy; Lizette Arthur, therapeutic rec; and Sister Malini Potts, Pastoral Care. CURRENT STATUS: Pedro is an 81-year-old man, admitted to our inpatient rehab unit following a CVA. The patient also has a history of diabetes mellitus type 2, hypertension, and hyperlipidemia. The patient has significant left-sided neglect. The patient is incontinent of bowel and bladder. His bottom is red. No pain issues. He can transfer sit to supine at contact guard assistance; supine to sit, minimal assistance. He can ambulate 150 feet hand-held assistance, minimal to moderate assistance; and he can climb 4 stairs with minimal assistance. His upper body dressing is at max to minimal assistance; lower body dressing, dependent; grooming, contact guard assistance; bathing contact guard assistance; toilet and shower transfers, minimal assistance; and toileting, contact guard assistance. Feeding is currently at standby. It is noted that the patient has been having more confusion. He is having visual deficits that are severe. He does follow some directions, but has difficulty paying attention to task and is very distractible. His comprehension is at minimal assistance. Language and expression, minimal assistance. Memory and problem solving, max assistance. Car transfers have not been done yet. The patient has been very open to pastoral care. No pharmacy concerns. DISCHARGE PLAN: The patient is receiving 3 hours of PT, OT, and speech Friday through Friday. The patient has daily rehab, nursing, and physiatry involvement as well as therapeutic recreational services 4 days per week. The patient has shown functional improvement and is progressing. Please see his plan of care for specific goals. Plan is for the patient to discharge in approximately 2 weeks. Plan is for the patient to go to [facility] as the patient will be unable to return to home due to his left-sided neglect. PATIENT'S NAME: PEDRO OTT [facility] AGE: 81 Y [address] ROOM: [place] [address] LOCATION: [facility] ADMIT DATE: 10/24/2016 Consultation DISCHARGE DATE: FAMILY PHYSICIAN: PHYSICIAN, UNKNOWN ATTENDING PHYSICIAN: Tito Carranza FOR TITO CARRANZA MD TD/modl /[id number] d: 11/04/16 1445 t: 12/06/16 1232, CONSULTATION REPORT
--- NOTE | ~2016-10-24 | DS ---
PATIENT'S NAME: AMANDA OTT [facility] AGE: 81 Y [address] ROOM: [place] [address] LOCATION: [facility] ADMIT DATE: 10/24/2016 Discharge Summary DISCHARGE DATE: FAMILY PHYSICIAN: Physician, Unknown ATTENDING PHYSICIAN: Elvira Redding [facility] COURSE: This 81-year-old gentleman was admitted to rehab unit at [facility] on 10/24/2016, is discharged to go to [facility] swing bed on 11/20/2016. 1. He was admitted with unstable gait. 2. Dependent in activities of daily self-care. 3. Left-sided weakness secondary to ischemic stroke with left facial droop and difficulty with talking and the ischemic stroke transformed into hemorrhagic stroke. 4. He did well. He is now able to comprehend, express himself; however, he is severely forgetful. VITAL SIGNS: Blood pressure 116/72, temperature 97.1, pulse 84, respiratory rate 16. He is able to ambulate 250 feet x1 with standby assistance and contact guard assistance. He needs to be reminded at all times, otherwise, he is very forgetful. He is at the present time to continue with PT, OT, and speech and be followed by the local physician. No followup with me. He must follow up with the local physician as soon as possible. He is on the following medications: 1. Norvasc 10 mg p.o. daily. 2. Aspirin 81 mg p.o. daily. 3. Lipitor 80 mg p.o. daily. 4. NovoLog insulin sliding scale, mild scale. 5. Levemir 12 units subcu every night. 6. Proventil 10 mg daily. 7. Glucophage 1000 mg p.o. b.i.d. 8. Lopressor 25 mg b.i.d. 9. Tylenol 650 q.6 hours, do not exceed acetaminophen 4 g q.24 hours. 10. Dulcolax 10 mg rectally p.r.n. 11. Glucose 16 g p.o. p.r.n. for hypoglycemia. 12. MOM 30 mL p.o. every day p.r.n. FINAL DIAGNOSES: 1. Unstable gait. 2. Dependent in activities of daily self-care. 3. Left facial droop and markedly forgetful, all secondary to ischemic stroke. PATIENT'S NAME: AMANDA OTT [facility] AGE: 81 Y [address] ROOM: [address] [address] LOCATION: [facility] ADMIT DATE: 10/24/2016 Discharge Summary DISCHARGE DATE: FAMILY PHYSICIAN: Physician, Unknown ATTENDING PHYSICIAN: Elvira Redding 4. The ischemic stroke transformed into hemorrhagic stroke. 5. Diabetes type 2. 6. Dyslipidemia. 7. Hypertension. 8. Coronary artery disease. He should not drive and/or operate any mechanical device until he is evaluated. He is very forgetful and needs to be supervised at all times for safety. He is vulnerable to running into problems. He must follow with his family physician as soon as possible. No followup with me. Cardiology followup as per recommendation of deputy insurance commissioner when he was on acute site. All the above was explained to him. He verbalized understanding and agreement. ELVIRA REDDING MD WMS/modl /[id number] d: 11/20/16618 t: 11/20/16 1631, DISCHARGE SUMMARY
[~2016-10-24 10:24] MED LIST changes: -ASPIRIN (CHILDR81 MG PO; -NORCO 5-325 TA1 EACH PO
--- NOTE | 2016-10-24 17:45 | NUR ---
Pt was at home when he was found by the mailbox on the ground. Pt reported that he had weakness on his L)side. [facility] [place] [facility] and after a neuro consult pt was given tpa. Pt is forgetful, was impulsive on the other unit. Pt on a hi-lo bed. Pt had a BM today prior to transfer. Pt on a diabetic diet. Pt dribbles in his brief, reports that this is new since he has been in the hospital. Pt denies pain. Pt is oriented to self, did not know place or month. PT has l)visual impairment. Pt [place], has cochlear implant on the left.
--- NOTE | 2016-10-24 19:57 | NUR ---
Significant Event: Pt forgetful and impulsive. Pt pleasant and cooperative with cares. Pt was a 1 assist with gait belt and walker. Pt required cues to scan to the left. Pt denies pain at this time, reports that he is just a little sore from the fall. Accuchecks were 306, 260, received insulin as ordered. Pt is on a hi-low bed. Follow up:Needs UA, needs measured for DHEERAJ baumann.
--- NOTE | 2016-10-25 04:47 | NUR ---
Significant Event:Alert to self at all times. Disoriented to time, place and abilities. ALARMS at all times r/t IMPULSIVE. Bruises all over body in various stages of healing. 1-2 assist transfer with gaitbelt and walker. Cognition impaired. Hard time following directions, multiple cues to complete tasks. Left side spacial deficit. Does not see anything on the left. [place]-SHOSHONE in right ear. 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 Wears glasses. R) ankle larger than left, previous injury-untreated. Compressions stockings off at HS, bilat calf pumps on most of night.Incontinence, frequent dribbling. [facility] accuchecks 4 units Novolog @ HS for 255 glucose. Bed alarm on. Call light in reach. Follow up:[facility] accuchecks. ALARMS for SAFETY.
[2016-10-25 05:40] LABS: BASOPHIL # 0.1 K/uL (0.0-0.2); BASOPHIL % 1.3 %; EOSINOPHIL # 0.3 K/uL (0.0-0.5); HEMATOCRIT 44.4 % (33.0-50.0); HEMOGLOBIN 15.2 g/dL (11.0-16.0); IMMATURE GRANULOCYTE # 0.1 K/uL (0.0-0.3); IMMATURE GRANULOCYTE % 0.5 %; LYMPHOCYTE # 2.4 K/uL (0.8-4.0); LYMPHOCYTE % 22.9 %; MCH 29.2 pg (27.0-34.0); MCHC 34.2 gm/dL (32.0-36.5); MCV 85.4 fl (83.0-98.0); MONOCYTE % 9.7 %; MPV 10.9 fl (9.4-12.4); NEUTROPHIL # (ANC) 6.4 K/uL (1.4-9.0); NEUTROPHIL % 62.6 %; NRBC % 0 /100WBC (0-0.00); RDW-CV 12.7 % (11.9-14.6); WBC 10.3 K/uL (4.0-11.0)
[2016-10-25 05:41] LABS: PLATELET COUNT 269 K/uL (150-450)
[2016-10-25 05:59] LABS: ALBUMIN 3.4 gm/dL (3.5-5.0); CREATININE 1.3 mg/dL (0.6-1.3); TOTAL BILIRUBIN 0.7 mg/dL (0.0-1.5); TOTAL PROTEIN 6.8 g/dL (6.0-8.4)
--- NOTE | 2016-10-25 09:15 | NUR ---
D: Therapeutic Recreation Initial Assessment on the 10/25/16. I: Patient seen for 2 units to begin initial evaluation. Pt has dx of CVA. R: Patient's current living [place] Home entrance steps: 2 + 14 in house Living with: alone Spouses name: single # of children: 0 Driving: yes, nephew Ambulating: mod I Equipment: cane Hand Dominance: Right Guest Services Attendant strength: L) side affected Eye sight: glasses, L) neglect Reading ability: N/T Hearing: ALUTIIQ, Cochlear implant Speech: clear Cognition: impaired Comprehension: poor, poor recall Following directions: at times Initiating: yes Eye contact: good Affect: bright COMMUNITY INVOLVEMENT: coffee daily, grocery shopping, out to eat, visit family friends LEISURE INTERESTS: watch TV, read newspaper, computer but doesn't use, 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 Information obtained: Interview, Chart Review, Observation, other. BARRIERS TO LEISURE: Social, Physical, Transportation, Leisure Skills. Patient determined to be: APPROPRIATE FOR THERAPEUTIC RECREATION ASSESSMENT. TREATMENT WILL INCLUDE: Community living skills training Functional leisure development Physical skills development Cognitive skills development Social skills development Leisure education Emotional/behavioral adaptation Family education Community resources/packet TARGET EQUIPMENT/INFORMATION: Parking Permit to assess need Community Resources Energy conservation in community setting Van/Service/Taxi Scrip Adapted Leisure Equipment Stress management/Relaxation techniques Functional car transfers Leisure Education Behaviors: Attitude, Awareness, Participation. Patient functional skills level and potential: Guarded, pt demonstrates cognitive deficits with recall, fair mobility and concerns for coping with major life changes. Patient oriented ot TR services on Rehab unit. Pt/family provided input into goals setting and plan of care. 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 P: Target date set with personal goals established. Will continue with POC focusing on pt/family training and education. For additional information please see Nursing Data Base, PT, OT, CM, ST, initial assessments to [facility] and Interdisciplinary Assessments.
--- NOTE | 2016-10-25 17:26 | NUR ---
Significant Event: Pt up in room and w/c with 1-2 assist, sl. unsteady, Left field neglect, needs multiple verbal and tactile cueing for activity. Pt impulsive at time, alarms in use at all times. Accuchecks 223, 251. Pt reports BM today. Hx rt ankle swelling from prev. injury. Pt cooperative with cares. Follow up: Pt did not sleep well last night. Safety, stay with pt in BR
--- NOTE | 2016-10-26 04:37 | NUR ---
Significant Event:Alert to self. Reorient to time and place. 1-2 assist w/ GB and walker/wheelchair. Unsteady at times. Left field neglect. Requires amny cues to complete a task. ACHS accuchecks, 345 @ HS administered 6 units sliding scale. Denies pain. Alarms at all times. Impulsive. Bed alarm on. Calllight in reach . Fall mats in place. Follow up:SAfety do not leave unattended in bathroom. Alarms at all times.
--- NOTE | 2016-10-26 17:25 | NUR ---
Significant Event:Pt has left field neglect, needs reinforcment, cueting for activities. Impulsive @ times, alarms on. AC/HS accuchecks. HX of right ankle swelling from previous injury. Orientated to self, needs assist with time and place, will forget. Denies pain. Pt has been pleasant and cooperative with plan of care. Follow up:do not leave pt unattended in BR, alarms on @ all times, fall risk. Accuchecks AC/Hs, requires cues-forgetful, left field deficiet.
--- NOTE | 2016-10-27 04:17 | NUR ---
Significant Event: Patient is alert and pleasantly confused. VSS B/P slightly high at 142/82. Is [place]. Left side weaker then right. Up 1-2 assist with GB/Walker. Is spontanous needs to be qalarmed at all time do not leave alone in BR. Accu checks AC&HS. Last night was 299 with 4 units of Novalog given per SS. Was incontinent last night but slept very well until 0300 then assist to the bathroom. Denies pain or discomfort. Follow up:
--- NOTE | 2016-10-27 14:45 | NUR ---
Significant Event:Pt continues to be orientated to self, requires orientation to place and time. Left field neglect, needs reinforcement,cueing for acitivities. Denies pain. Impulsive @ times has set off the alarm 3 x during the day, with getting up to do something. No changes in assessment. Pt has been pleasant and cooperative with cares, but not coherant to calling staff for assist. Follow up:Do not leave pt unattended in BR. alarms on @ all times, fall risk, Accuchecks AC/HS, requires cues due to forgetful. left field deficiet.
--- NOTE | 2016-10-28 04:25 | NUR ---
Significant Event: Patient is alert and pleasantly confused. VSS. Left side strength is good but has left side neglect. Sat up during the evening then to bed. Up one assist with GB/Walker gets disoriented at times and may need more then one assist. Has been incontinent of urine x 3. Has been confused tonight and unable to sleep has set off the alarm frequently enough nursing had to sit with him for a few hrs. Denies pain or discomfort. Do not leave alone in BR and alarm at all times for safety. Accu checks AC&HS last night was 236. 2 units of Novalog given. Follow up:
--- NOTE | 2016-10-28 08:27 | NUR ---
A-SCREENED D/T LOS; NEW ADMIT TO [facility]. S/P TPA ADMIT WT (STANDING SCALE): 77.2 KG. CBW (STANDING SCALE): 76.9 KG. LAST STANDING SCALE WT FROM F/U ON ACUTE FLOOR WAS 78.4 KG. BMI: 25.7. ALERT/PLEASANTLY CONFUSED. [place]; L)COCHLEAR IMPLANT LABS: NA 141, K+ 4.0, GLU 234, BUN 20, POLYMER ENGINEER 1.3, ALB 3.4, PREALB 23.0 MEDS: LIPITOR, LEVEMIR, PRN BOWEL MEDS, NOVOLOG (MILD SS) DIET RX: CONSISTENT CARB. PO INTAKE HAS BEEN GOOD; 50-100%; AVG IS 92%. EST NUTR NEEDS: [id number] KCALS (28-30 KCALS/KG) 77-84 GM PROTEIN (1.0-1.1 GM/KG) 1 ML FLUID/KCAL D-AT NUTRITION RISK W/UNINTENDED WT LOSS R/T INADEQUATE ORAL INTAKE AEB 3.3 LB LOSS X 1 WEEK. I-START GLUCERNA QD AT [facility] TO PROVIDE ADDITIONAL NUTRIENTS M/E-GOAL: PO INTAKE >/=75% FOR DURATION OF ADMIT 1)F/U PO INTAKE, SUPPLEMENT, AND WT IN 3-5 DAYS 2)ASSIST NEEDED
--- NOTE | 2016-10-28 19:23 | NUR ---
Significant Event: Accuchecks were 88, 221, 263. Pt was started back on metformin today, initial dosed at 1730. Pt continues to be forgetful, does not use his call light. Pt was noted to be up in his room a couple times with the alarms sounding. Pt orineted to self, not oriented to place or time. Pt required cues to look to the left. Follow up:
--- NOTE | 2016-10-29 05:04 | NUR ---
Significant Event:Forgetful, unsure of where he is or date, does know his name and birthdate. Hi low bed with floor mats x 2, side rails up x 3. Impulsive, doesn't use call lights.Hs accucheck 222, given 2 units sliding scale insulin. Incontinent of urine x 4 of large amts, last bm on 4th, po intake 150 ml. Left arm/grasp slightly weaker. Moves with one assist and gait belt. Slight facial droop. CT scan from yest showed no significant changes since tpa was given. Has slept well tonight, denies pain. Ankle/feet edema. Follow up:Accuchecks ac/hs. Use of alarms for safety.
--- NOTE | 2016-10-29 13:03 | NUR ---
D: TR progress note for 10/29/16. I: Pt seen for 2 units at 1233 for community integration skills building, functional transfers, and cognitive thinking task for community re-entry. R: Pt seen for functional skills building working on mobility, safety, transfers and cognitive thinking skills to build independence in community skills in anticipation for discharge back into community with family. Pt taken around [facility] campus outdoors to simulated community environment by Therapies ( OT/TR) for training, safety and community education. Pt transferred sit > stand from CGA with cues, ambulated community distances 250+ feet CGA with hand held assist for guidances with cues for navigation and noted need for therapeutic rest breaks. Pt completed transfers on/off low restaurant style chair with no arm rest and on/off low park bench with no arm rest both CGA with cues for technique due to poor problem solving on turning technique. Education done on energy conservation and safety in community with noted poor recall but good social initiation with bright affect. P: Will continue to see to address goals and plan of care.
--- NOTE | 2016-10-29 14:38 | NUR ---
Significant Event: Forgetful. Disoriented to time and place. Up with 1A walker and gait belt. Impulsive. Alarms at all times. Denies pain. Accuchecks ACHS. 107 and 195 this shift. No sliding scale needed. Hi lo bed. Cooperative with cares. Follow up:
[2016-10-30 04:30] LABS: BILIRUBIN URINE NEGATIVE (NEGATIVE); BLOOD URINE NEGATIVE /UL (NEGATIVE); COLOR URINE YELLOW (YELLOW); GLUCOSE URINE 100 mg/dL (NEGATIVE); KETONE URINE NEGATIVE (NEGATIVE); LEUKOCYTES URINE NEGATIVE /UL (NEGATIVE); NITRITE URINE NEGATIVE (NEGATIVE); PROTEIN URINE NEGATIVE (NEGATIVE); SPEC GRAVITY URINE 1.015 (1.003-1.035); TURBIDITY URINE CLEAR (CLEAR); UROBILINOGEN URINE NORMAL (NORMAL)
--- NOTE | 2016-10-30 05:58 | NUR ---
Alert and oriented to person only. Cooperative with cares. Fails to call for assistance. Incont voids. Up with one assist and walker. Accu= 215 with 2 units sliding scale given.
--- NOTE | 2016-10-30 12:42 | NUR ---
Significant Event: Pt up in room with walker, 1 assist, basilio. fair. Left sided neglect present. Confusion, forgetful. Alarms at all times. Denies any pain. Accuchecks 103, 162. Pt cooperative with cares. Extra large inc. stool while in O.T. session today. Inc. voids. Follow up: safety, activity
--- NOTE | 2016-10-31 05:37 | NUR ---
Oriented to person only. Up with one assist and walker. Difficulty following instructions and tracking when up. Left sided deficit present. Inc of urine, but up and had mod mushy BM this am. Accucheck= 238. Denies pain.
--- NOTE | 2016-10-31 12:11 | NUR ---
PT MOVED TO NO RISK WT IS STABLE AT 169#, BMI WNL, AND INTAKE CONSISTENTLY 75-100%. WILL CONT GLUCERNA QD TO MAINTAIN NUTRITION STATUS.
--- NOTE | 2016-10-31 14:14 | NUR ---
[facility] Case Management Prefunctioning and Psycho-Social Initial Assessment for 10/24/16 and Case Conference note for 10/29/16 D: Initial Stockroom ClerkEdger Hand and Case Conference Note. I: Input from: patient, family, Dr. Redding, Torri Barlow [facility]. R: Reason for admission: right frontal and parietal infarcts. Admission Date to [facility]: 10/24/16 Admission Date to Hospital: 10/18/16 Prior level of functioning: patient was independent with adl's and household prior to stroke[place]. Prior living situation: two story house Financial resources/expectations: patient has Medicare and BC/BS. Resources used: walk-in shower, grab bars, FWW. Resources available: HHC, outpatient therapy, SNF, ASSISTED, [facility], DME. Family support available: nieces, nephews. Understands nature of health condition: no; patient seems confused Recognizes impact of health condition on lifestyle: no; patient is confused. 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 Monitor for signs and symptoms of depression and anxiety. Legal concerns: none. Discharge goal: home with support vs. SNF Assessment: Keith is an 81 year old man from [place], [place] admitted after a stroke. He has good support of his family. Team conference was held on 10/29/16 and plan is to keep for 2 weeks. Explained to patient and family that team feels he need long term facility placement. Family is in agreement. Would like [facility] on d/c. Will follow and assist as needed. Orientation to the program and CM services completed with Keith/nephew. Initial plan of care and estimated length of stay discussed, disclosure statement reviewed including patient assessment rights. P: Target date and individual goals established. Please see POC for details. For additional information please see Nursing Data Base, PT, OT, TR, ST, Initial assessments to [facility].
--- NOTE | 2016-10-31 17:13 | NUR ---
Significant Event: Pt up in room with walker, 1 assist, left visual neglect, continues to need much cueing. REmains confused, reorients poorly at times, forgetful. Accuchecks 120,239. Remains inc. of bladder. Large inc. stool while upstairs with O.T. Metoprolol held r/t below parameter. Pt cooperative with cares. Follow up: Alarms in use at all times, safety, activity.
--- NOTE | 2016-11-01 04:48 | NUR ---
Significant Event: Patient is alert and pleasantly confused. Up one assist with GB/Walker. Gait is steady. Left side deficit. Incontinent of urine. ACCU checks AC&HS last night was 291. Received 4 units of Novalog. Slept very well all night. Follow up: Alarm at all times for safety.
--- NOTE | 2016-11-01 12:03 | NUR ---
D: TR progress note for 11/01/16. I: Pt seen for 2 units at [facility] for community integration skills building, functional transfers, and safety awareness. R: Pt seen for functional skills building working on mobility, safety, endurance and functional transfers in anticipation for discharge back into community. Pt transferred sit > stand from [facility], ambulated to/from bathroom 6 feet CGA with walker, transferred on/off toilet CGA, min assist for balance with clothing management with extra time allotted due to slow processing. Pt transferred sit > stand from [facility], ambulated with METAL MIXER 3 feet to/from vehicle CGA and transferred in/out of vehicle CGA with cues for hand placement. Pt was SBA for BLE management and positioning of self with seat surface adapted using trash bag to ease task. Pt tolerated ride with no C/o pain, discomfort or nausea, worked on scanning exercise was max verbal and tactile cues for scanning L). P: Will continue to see to address goals and plan of care.
--- NOTE | 2016-11-02 04:48 | NUR ---
Significant Event: Patient is alert and pleasantly confused. Is cooperative with cares. VSS.Up one assist with GB/Walker. Takes meds whole with water. Is incontinent of urine at times needs reminded to use the bathroom. Alarm at all times for safety. Accu checks AC&HS last night was 215. Follow up:
--- NOTE | 2016-11-02 14:43 | NUR ---
Significant Event: Patient is alert and pleasantly confused. Up with 1A walker and gait belt. Alarms at all times. Denies pain. Meds whole with water. Accuchecks ACHS. 87 and 194 this shift. No sliding scale needed. Incontinent. Family present this afternoon. Cooperative with cares. Follow up:
--- NOTE | 2016-11-03 01:52 | NUR ---
Significant Event:Up with one assist with verbal/tactile cues, requires repetitive cues when being awoken from sleep to use bathroom. Remains continent, have woken pt up q 3 hrs to use toilet. Hs accucheck 233, gave 2 units sliding scale insulin plus scheduled Levemir, also gave hs snack. Takes meds whole with water. Uses walker when up. Moderate strength to bilat hands, slightly weaker on left grasp. Ankle edema to rt ankle. Has some left sided neglect. Last bm on . Use of pad positioning alarm, bed exit alarm. Follow up:Accuchecks ac/hs. Toilet q 2-3 hrs. Use of alarms when pt is up due to safety, don't leave pt alone in br.
--- NOTE | 2016-11-03 13:21 | NUR ---
Significant Event: Alert and pleasantly confused. Up with 1A walker and gait belt. Alarms at all times. Accuchecks ACHS. 81 and 308 this shift. 6 units given for 308. Meds whole with water. Incontinent at times. Mod BM this shift. Cooperative with cares. Follow up:
--- NOTE | 2016-11-04 02:51 | NUR ---
Significant Event:Transfers with one/walker/gaitbelt with verbal/tactile cues, requires more cueing during night hrs when pt is awoken to get up to br. Does have some left sided and some visual neglect.Talkative, able to make needs known. Denies pain. Hs accucheck 222, given 2 units sliding scale. Edema to lower bilat ankles, > on rt side. Lopressor dose held at hs due to b/p parameters to hold if < 140. Sys was 136. Toileted q 3 hrs, remained continent except initially at start of shift. Skin to buttocks/coccyx reddened, aloe applied. Had hs snack last evening. Hi Low bed with floor mats--use alarms!! Follow up:Remain with pt in br, high risk of falls and he does not use call light.Accuchecks ac/hs. Possible need to apply Wanderguard for safety--he had wandered from unit on Friday over to waiting area on msu.
[2016-11-04 06:35] LABS: ALBUMIN 3.5 gm/dL (3.5-5.0); ALK PHOS 73 IU/L (33-138); ALT 49 IU/L (12-78); ANION GAP 10.9 (10.0-19.0); AST 36 IU/L (10-40); BLOOD UREA NITROGEN 20 mg/dL (6-24); CALCIUM 9.2 mg/dL (8.5-10.5); CHLORIDE 108 mMol/L (96-110); CO2 24 mMol/L (22-32); ESTIMATED GFR (MDRD EQUATION) > 60; POTASSIUM 3.9 mMol/L (3.7-5.1); SODIUM 139 mMol/L (135-145); TOTAL PROTEIN 6.7 g/dL (6.0-8.4)
[2016-11-04 06:36] LABS: TOTAL BILIRUBIN 0.4 mg/dL (0.0-1.5)
--- NOTE | 2016-11-04 17:50 | NUR ---
Significant Event: PT DENIED PAIN. PTS ACCUCHECKS WERE 191, 258. PT ORIENTED TO SELF. PT FORGETFUL AND NOT ORIENTED TO TIME OR PLACE. PT NEEDS CUES TO SCAN TO HIS LEFT. PTS DOSE OF METFORMIN WAS INCREASED TODAY. PT GOT UP BY HIMSELF A COUPLE TIMES, BUT WHEN THE ALARM WENT OFF HE SAT BACK DOWN AND WAITED FOR NURSE. Follow up:
--- NOTE | 2016-11-05 04:21 | NUR ---
Significant Event: Patient is alert and oriented to self, disoriented to time and place. Cooperative with cares. VSS. Up one assist with GB/Walker. Is [place] has a cochlear implant to the left no hearing aides here. Accu checks AC&HS last night was 213. Metformin has been increased to 850 mg yesterday. Is incontinent at times, needs to be assisted to the BR q 2 hrs. Must be alarmed at all times and do not leave alone in the BR. Is on a Hi/Lo bed. Wandered off the unit to [facility] on Friday when he was in his w/c. May need a wander guard. Follow up: Alarm for safety.
--- NOTE | 2016-11-05 14:43 | NUR ---
D: TR progress note for 11/05/16. I: Pt seen for 2 units at 1402 for attention to task, visual scanning, motor skills, and coping strategies. R: Pt seen for functional skills building working on motor skills, scanning L) and coordination doing leisure task of word searches to increase independence with leisure task and visual scanning. Task was adapted to assist with L) neglect by enlarging and limiting choices to only 8 words in a 6x6 square. Pt needed mod > max cues for L) side as completed all words on R) side first with noted fair attention to task. Pt demonstrated fair motor skills and coordination when attempting to [place] words and able to read single words without difficulty. Education done on utilization of leisure to promote recovery. P: Will continue to see to address goals and plan of care.
--- NOTE | 2016-11-06 11:51 | NUR ---
D: TR progress note for 11/06/16. I: Pt seen for 2 units at 1102 for cognitive thinking, concentration, functional social communication, and coping skills. R: Pt seen for functional skills building working on concentration, functional social communication, cognitive thinking and coping skills doing cognitive trivia task in group setting to increase leisure awareness. Pt was SBA with personal introduction of self, hometown and past leisure involvement. Pt able to identify and complete cognitive trivia task SBA > occasional cues at start of session but by end noted increase difficulty with attention to task, remaining alert and recall. P: Will continue to see to address goals and plan of care.
--- NOTE | 2016-11-06 19:31 | NUR ---
Significant Event:PATIENT ALERT BUT IS DISORIENTED TO TIME AND PLACE. VSS. IS UNSTEADY ON HIS FEET WHEN TRANSFERING. RIGHT FOOT DRAGS ONCE IN A WHILE. HAS DENIED PAIN. TOLERATES THERAPIES WITHOUT DIFFICULTY. HAS EATEN MOST MEALS IN THE DINING ROOM. ALARMS AT ALL TIMES IS IMPULSIVE. NEEDS REMINDED OF PROPER USE OF THE WALKER A LOT. TRANSFERS WITH 1 ASSIST, GAIT BELT AND WALKER. NO OTHER COMPLAINTS. Follow up:
--- NOTE | 2016-11-07 02:30 | NUR ---
Significant Event:Takes meds whole. Hs accucheck 218, given 2 u sliding scale. Levemir dose was changed from 20 u to 15 units at hs. Given hs snack. Up with one assist and walker/gaitbelt, needs verbal/tactile cueing. Has some left sided neglect as well. Slightly weaker left hand grasp. Edema to rt lower leg/ankle area. Toileting q 3 hrs, has remained continent. 155/78, tachy in 110-112 last evening. Gave Lopressor dose early, heart rate in mid 70's after midnight. Last bm on . [place], has left cochlear implant. Side rails up x 3, hi lo bed with floor mats x 2. Follow up: Accuchecks. Don't leave alone in bathroom--is impulsive and won't use call light. Alarms at all times. Monitor tachycardia.
--- NOTE | 2016-11-07 12:46 | NUR ---
D: Panel Cutter Team Conference Follow up for 11/05/16 I: Input from patient/family R: Met with: patient, family, Torri Cates BOTTOM HOOP DRIVER Discussed rehab plan, patient progress, discharge plan and estimated length of stay of d/c planned in approx. 2 weeks. Patient/Family Preference: In agreement. Anticipated discharge disposition: SNF in [place], [place] or [place], [place]. Education completed: Education was completed with patient and family regarding length of stay, progress in therapy and d/c plan. Assessment/Recommendation: Team recommends d/c in approx. 2 weeks. P: Case Coordination: Pedro is an 81 year old man admitted after a stroke. He has good family support. [place] Planning SNF placement on d/c. Will follow.
--- NOTE | 2016-11-07 13:21 | NUR ---
A - NUTRITION FOLLOW-UP. PLEASANTLY CONFUSED PER SHIFT REPORT. IMPULSIVE. WT STABLE PER RECORD. LABS: GLU 105 NEW MEDS: GLUCOPHAGE, LEVEMIR DIET: CONSISTENT CARBS W/ GLUCERNA ONCE DAILY. INTAKE 88% X9 MEALS, SUPPLEMENT 100% X3 NOTED. EST NEEDS: 5422-4659 KCAL, 77-84 GRAMS PROTEIN, FLUID NEEDS: 1ML/KCAL D - NUTRITION PROBLEM RESOLVED. I - CONTINUE WITH GLUCERNA ONCE DAILY. M/E - GOAL: PT WILL CONTINUE TO CONSUME >75% OF MEALS IN 7 DAYS.
--- NOTE | 2016-11-07 16:12 | NUR ---
Significant Event: Patient alert to self but disoriented to time and place. Forgetful and needs lots of cues for all cares. Impulsive and needs alarms. Do not leave alone in bathroom. Accuchecks with s/s insulin. Follow up:
--- NOTE | 2016-11-08 03:19 | NUR ---
Significant Event: DISORIENTED TO TIME AND PLACE. ON HI LO BED. NEEDS CONSTANT VERBAL CUES, MORE SO DURING NIGHT WHEN AWAKEN TO TAKE TO BATHROOM. INCONTINENT AND VOIDED IN TOILET. TRANSFERS WITH WALKER AND 1 ASSIST. DENIES PAIN. ACCUCHECK AT HS WAS 195, NO SS INSULIN REQUIRED. LOPRESSOR HELD DUE TO BP PARAMETERS. BOP WAS 128/74. DO NOT LEAVE ALONE IN BATHROOM. Follow up:
--- NOTE | 2016-11-08 12:23 | NUR ---
D: TR progress note for 11/08/16. I: Pt seen for 2 units at 930 for community integration skills building, functional transfers, and safety awareness. R: Pt seen for functional skills building working on mobility, safety, visual scanning and functional transfers in anticipation for discharge back into community. Pt transferred sit > stand from CGA, ambulated to/from vehicle PUBLIC RELATIONS CONSULTANT 4 feet CGA and transferred in/out of vehicle SBA with cues for hand placement. Pt was SBA for BLE management and positioning of self with seat surface adapted using trash bag to ease task. Pt tolerated ride with no C/o pain, discomfort or nausea, worked on scanning task was max verbal and tactile cues for scanning L) with only 50% even with cues. P: Will continue to see to address goals and plan of care.
--- NOTE | 2016-11-08 17:27 | NUR ---
Significant Event:Is disoriented to time & place.Forgetful.Slight more weakness on Lt.side.Has been up with one assist.No c/o pain.Is on accuchecks.No c/o pain. Follow up:
--- NOTE | 2016-11-09 04:40 | NUR ---
Significant Event:Pt alert however can be very confused at times, easily reoriented. very pleassant with staff and cares. up with 1 assist gb. does well with trasnfers. can be incont of urine at times. lopressor held at hs due to orders. achs blood sugars. hs blood sugar 297.takes medicaiton whole with no complications noted. denies pain when asked. bed alarm in place due to forgetfulness. Follow up:
--- NOTE | 2016-11-09 14:51 | NUR ---
Significant Event: Pt up in room with walker, 1 assist, sl. unsteady, basilio. well. Left visual neglect. Metoprolol parameter changed, this afternoon. Dose was given this am for BP of 148/67, HR 94. Pt denied pain. Accuchecks 90,243. Remains confused, alarms in use. Pt cooperative with cares. Follow up: activity, safety
--- NOTE | 2016-11-10 04:44 | NUR ---
Significant Event: UP TO BATHROOM WITH WALKER AND 1 ASSIST AMBULATES FIAR. NEEDS CUES TO DO TASK. DISORIENTED TO TIME AND PLACE. PLEASANT AND COOPERATIVE. ACCUCHECK AT HS 171, NO SS INSULIN NEEDED. ON HI LO BED, BED ALARM ON. DENIES PAIN. LEFT HAND GRASPP SLIGHTLY WEAKER THAN RIGHT Follow up:
--- NOTE | 2016-11-10 14:56 | NUR ---
Significant Event: Pt up in room and portillo with walker and 1 assist. Pt did unhook alarm from self while in w/c and was walking in the portillo this afternoon. Pt pleasantly confused, alarms in use at all times. Pt has denied pain. Accuchecks 91,289. Inc. of urine at times. Follow up: safety, alarms in use, accuchecks
--- NOTE | 2016-11-11 04:56 | NUR ---
Significant Event: denies pain. pleasantly confused. disoriented to time and place. needs verbal cues. did get out of wheelchair after removing tabs alarm and walked into [facility]. up to bnathroom with walker and 1 assist unsteady gait. bed alarm on, in hi lo bed. Follow up:
[2016-11-11 06:14] LABS: ALBUMIN 3.3 gm/dL (3.5-5.0); ALK PHOS 67 IU/L (33-138); ALT 42 IU/L (12-78); ANION GAP 11.8 (10.0-19.0); AST 32 IU/L (10-40); BLOOD UREA NITROGEN 20 mg/dL (6-24); CHLORIDE 110 mMol/L (96-110); CO2 22 mMol/L (22-32); CREATININE 0.9 mg/dL (0.6-1.3); ESTIMATED GFR (MDRD EQUATION) > 60; POTASSIUM 3.8 mMol/L (3.7-5.1); SODIUM 140 mMol/L (135-145); TOTAL BILIRUBIN 0.4 mg/dL (0.0-1.5); TOTAL PROTEIN 6.4 g/dL (6.0-8.4)
--- NOTE | 2016-11-11 14:49 | NUR ---
Significant Event: Patient alert to self only. Confused to time and place. 1 assist. Impulsive at times. High low bed. Accuchecks with s/s insulin. Follow up:
--- NOTE | 2016-11-12 03:59 | NUR ---
Significant Event: Patient is alert and pleasantly confused. VSS. Up one assist with GB/Walker. Is forgetful and needs to be alarmed at all times. Will use his call light occasionaly. Accu checks AC&HS sliding scale with meals. Last night BS was 257. Levemier given but no sliding scale was ordered. Follow up:
--- NOTE | 2016-11-12 16:18 | NUR ---
D: TR progress note for 11/12/16. I: Pt seen for 2 units at 1334 for community integration, cognitive task, functional transfers and safety awareness. R: Pt see for functional skills building working on attention to task, scanning and functional transfers to improve overall independence with all task. Pt taken around [facility] outdoors to simulate community environment. Pt transferred sit > stand from WC SBA, ambulated 6 feet to/from low picnic style chair with no arm rest and transferred on/off seat CGA with cues for hand placement. Pt worked on pathfinding and orientation, was correct with Month/number day but incorrect with day of week, location and person. Pt transferred sit > stand from WC CGA, ambulated 6 feet to bathroom CGA with verbal and tactile cues for scanning L), CGA for clothing management with extra time for processing and transferred onto toilet CGA, Nursing Staff resume bathrooming. P: Will continue to see to address goals and plan of care.
--- NOTE | 2016-11-12 16:38 | NUR ---
Significant Event: Patient alert and oriented only to self. Forgetful. Pleasantly confused. Accuchecks with s/s insulin. In physical therapy today patient went down on his left leg. Has an abrasion on his left knee and left johansen area. Skin tear protocol to this area. Some left sided neglect. Is impulsive and needs alarms at all times. Follow up:
--- NOTE | 2016-11-13 02:44 | NUR ---
DRESSING TO LEFT KNEE AND LOWER LEG CHANGED DUE TO BEING LOOSE. LEFT KNEE ABRASION AND LEFT LOWER LEG ABRASION . NO DRAINAGE NOTED.
--- NOTE | 2016-11-13 02:48 | NUR ---
Significant Event: DRESSSING TO LEFT KNEE AND LOWER LEG CHANGED, DUE TO BEING LOOSE. PATIENT WENT DOWN ON LEFT LEG IN THERAPY YESTERDAY. HAS ABRAIONS NO DRAINAGE. UP TO BATHROOM WITH 1 ASSIST AND WHEELCHAIR, UNABLE TO FIND WALKER IN ROOM, PATIENT NORMALLY USES. REMAINS DISORIENTED TO TIME AND PLACE. LEFT HAND GRASP SLIGHTLY WEAKER. NEEDS CONSTANT CUEING DURING THE NIGHT FOR ACTIVITY. DO NOT LEAVE IN BATHROOM ALONE, SAFETY CONCERN, DOES NOT USE CALL LIGHT APPROPRIATELY. HAS VOIDED AND ALSO INCONTINENT AT NIGHT. Follow up:
--- NOTE | 2016-11-13 12:09 | NUR ---
D: TR progress note for 11/13/16. I: Pt seen for 2 units at 1100 in group session for education on safety when around pets/animals, group participation, and leisure education. management, and coping strategies . R: Pt seen for functional skills building working on relaxation techniques, stress/pain management, continued education on coping skills using animals for Animal Assisted Therapy. Pt completed functional communication skills independently which included introduction and shared with group about his pets. Pt independently with interaction with animals, volunteers and peers, SBA when handling and maneuvering animals during Animal Assisted Therapy utilizing BUE with fair safety awareness and good bilateral scanning. Education done on safety with ambulation/mobility in homes when around animals, safety with possibility of poor skin integrity and utilizing pets to assist with coping and stress/pain management when opportunity available. P: Will continue to see to address goals and plan of care.
--- NOTE | 2016-11-13 16:45 | NUR ---
Significant Event: Alert and oriented to self only. Disoriented to time and place. SBP 122, HR 83. Dressing changed to left knee and johansen, vaseline gauze, gauze and kerlex. ACHS accuchecks 98, 187, no correction needed. Left leg slightly weaker than right. Up with 1 assist, gait belt and walker. Patient will also walk 1 assist, hand held. Does not use call light appropriately. Alarms at all times. Patient has been incontinent at times. Pleasant and cooperative with cares. Follow up:
--- NOTE | 2016-11-14 04:44 | NUR ---
Significant Event: Patient is alert and disoriented to place and time. VSS. up one assist GB/Walker or handheld. Patient is always cooperative and pleasant but does not always use his call light. Has set off his alarm t/o the night but is redirected easily. Dressing to his left knee and johansen from a fall in Therapy yesterday. Accu checks AC&HS sliding scale has been changed to TID with meals. Last nights BS was 212. Follow up:
--- NOTE | 2016-11-14 09:25 | NUR ---
Significant Event:Pt continues to be disorientated to time and place, orientated to self. Dressing to left knee and johansen dry and intact. ACHS accuchecks. Left leg slt weaker than right leg, up with 1 assist, gait belt and walker. Does not use call light all the time, alarms on @ all times to remind pt to wait for staff to come and assist, pt still will get up @ times by self. [place]. Pt has been pleasant and cooperative with plan of care. No complaints of pain @ this time. Follow up:Monitor safety, personal alarms, bathroom every 2-3 hours, monitor dressings left knee, johansen.
--- NOTE | 2016-11-14 11:28 | NUR ---
A - NUTRITION FOLLOW-UP PLEASANTLY CONFUSED. 4# WT LOSS SINCE 11/05 NOTED? LABS: GLU 64, ALB 3.3, PRE-ALB 25 (11/11) MEDS: MILD SSI. DIET: CONSISTENT CARBS W/ GLUCERNA ONCE DAILY. INTAKE 75-100% ALL MEALS, TAKING SUPPLEMENT 100% PER RECORD. REVIEWED PT'S MENU, SEEMS TO BE ORDERING ADEQUATE AMOUNT OF FOOD, CALORIES RANGE FROM [id number] BASED ON 3-DAY MENU. EST NEEDS: 7900-7558 KCAL, 77-84 GRAMS PROTEIN, FLUID NEEDS: 1ML/KCAL D - NUTRITION PROBLEM RESOLVED. I - CONTINUE W/ GLUCERNA ONCE DAILY TO SUPPLEMENT ORAL INTAKE. M/E - GOAL: PT WILL CONTINUE TO CONSUME >75% OF MEALS IN 7 DAYS. PLAN: WILL CONTINUE TO MONITOR PT'S WEIGHT.
--- NOTE | 2016-11-14 15:54 | NUR ---
D: Reactor Fueling Supervisor Team Conference Follow up for 11/12/16 I: Input from patient/family R: Met with: patient, family, Torri Cates DOORKEEPER Discussed rehab plan, patient progress, discharge plan and estimated length of stay of d/c planned in approx. 7 days. Patient/Family Preference: patient is in agreement with this plan. Anticipated discharge disposition: swing bed. Education completed: Education was completed with patient and family regarding length of stay, progress in therapy and d/c plan. Assessment/Recommendation: Team recommends d/c in approx. 1 week. P: Case Coordination: Pedro was admitted to [facility] following a stroke. He has good family support. Plan is to d/c in approx. 1 week to swing bed either in [place], [place] or [place]. Will follow and assist as needed.
--- NOTE | 2016-11-15 05:22 | NUR ---
Significant Event: Pt A&Ox1; does know that it is 2016. VS stable, remains on RA. Lt sided weakness, x1-2 assist w/gb and FWW. Incontinent at times. Lt side edema. Rt ankle swelling > Lt ankle. Lt eye vision deficit. [place]ins with cochlear implants. No c/o pain. ALARMS ON AT ALL TIMES. Follow up: Continue plan of care.
--- NOTE | 2016-11-15 16:48 | NUR ---
Significant event: Continues to be disoriented to time and place. Dressing to left knee dry and intact. Incontinent at times. Pleasant and cooperative with cares. Alarms on at all times, is impulisive and will try to get up on own at times.
--- NOTE | 2016-11-16 07:06 | NUR ---
Significant Event:Use of alarms for safety, impulsive and doesn't use call light. Remains in hi low bed with floor mats, side rails up x 3. [place] q 3-4 hrs for voids, remains continent. Large bm on . Drsgs to left knee/mid left johansen over reddened abrasion like areas--drsgs changed last evening, no drainage. Drsgs easily become loose and don't stay in place very well. Rt ankle edema > than Lt. Accucheck at hs 168, gave levemir--no sliding scale coverage for hs accucheck. Apical rate irregular. Forgetful/alert to self but not date or location. Up with walker/one assist, hands on--don't leave alone in br. Follow up:Ac Accuchecks with sliding scale coverage. Alarms for safety.
--- NOTE | 2016-11-16 11:25 | NUR ---
Significant Event:Pt alert and orientated to self,conversation scattered, and attention easily divereted when talking to, and hard to keep his attention on the task. Continues to have occasional incontinence. Has Left side vision deficiet. Ambulates to BR and in hallway with 1 assist and walker. [place]. No complaints of pain. Positioning alarms on @ all times. Pt has been pleasant and cooperative with plan of care. Follow up:Fall @ risk, alarms 2 all times.
--- NOTE | 2016-11-17 04:30 | NUR ---
Significant Event:Up with one assist and walker, needs verbal/tactile cues for tasks to be completed. Use of alarms for safety, hi low bed and floor mats in use. Drsgs changed to left knee and johansen area, no drainage with abrasion like areas--use of vaseline gauze and gauze tonya. Had hs snack. Alert to self only. Denies pain, no numbness/tingling. Left side slightly weaker. Don't leave unattended in br. Taken to br q 3-4 hrs. Last bm on . Follow up:Alarms/remain with pt in br for safety. AC accuchecks with sliding scale. Drsgs to left knee/johansen.
--- NOTE | 2016-11-17 09:31 | NUR ---
Significant Event:Pt assessment unchanged. hands on cueing and redirecting for all tasks. Pt is easily distracted from task started. Has occasional incont., he reports when he needs to go sometimes he is done before we get him to the BR. Assist with guidence for left side vision deficiet. Have ambulated pt in hallway with 1 assist and walker. Do not leave pt alone in wheel chair as he will wheel himself about with no respect to safety. Positioning alarms on @ all times. Pt shauved, and groomed self @ sink this am. Pt has been pleasant and cooperative with plan of care. Follow up:Fall @ risk, alarms on @ all times.
--- NOTE | 2016-11-17 14:14 | NUR ---
PT refused noon meal. Sleeping, let pt rest, then offered Zofran which he took @ this time. Ate a few bites of pudding and about 50 ml of Ensure. Then wanted to rest some more.
--- NOTE | 2016-11-18 04:46 | NUR ---
Significant Event: Patient alert and oriented to person and place and month. Transfers 1A gb/walker. L) sided neglect. Distracted easily when asked a question or performing a task. Ambulated in portillo X1. Bathroom Q3H. Alarms. VSS. Cooperative with cares. Follow up:
[2016-11-18 06:06] LABS: ALBUMIN 3.4 gm/dL (3.5-5.0); ALK PHOS 64 IU/L (33-138); ALT 42 IU/L (12-78); ANION GAP 10.2 (10.0-19.0); AST 33 IU/L (10-40); BLOOD UREA NITROGEN 23 mg/dL (6-24); CALCIUM 9.1 mg/dL (8.5-10.5); CHLORIDE 110 mMol/L (96-110); CO2 25 mMol/L (22-32); CREATININE 0.9 mg/dL (0.6-1.3); ESTIMATED GFR (MDRD EQUATION) > 60; POTASSIUM 4.2 mMol/L (3.7-5.1); SODIUM 141 mMol/L (135-145); TOTAL BILIRUBIN 0.4 mg/dL (0.0-1.5); TOTAL PROTEIN 6.4 g/dL (6.0-8.4)
--- NOTE | 2016-11-18 15:22 | NUR ---
Significant Event: Pt denies pain. Up with 1 assist and walker but needs lots of verbal ques for tasks. Bed alarm on at all times for safety. Follow up:
--- NOTE | 2016-11-19 03:52 | NUR ---
Significant Event: disoriented to time and place. up with 1 assist and walker. needs lots of cues with tasks during night. denies pain. left side slightly weaker. left visual neglect. pleasant and cooperative. Follow up:
--- NOTE | 2016-11-19 14:13 | NUR ---
D: TR progress note for 11/19/16. I: Pt seen for 2 units 1334 for leisure education, coping strategies, cognitive thinking task and functional transfers. R: Pt seen for functional skills building working on education for utilization of leisure involvement for pain/stress management, cognitive thinking task, and coping strategies to promote recovery and to increase independence with leisure task post discharge. Pt taken outdoors for session, transferred sit > stand from WC SBA, pivoted to/from low park bench CGA > SBA and transferred on/off bench SBA with cues for hand placement and safety. Pt able to complete cognitive trivia task using photo cue cards at 98% accuracy with fair > good attention to task but. Pt transferred WC > recliner SBA with use of walker and cues for safety. P: Will discharge tomorrow, 11/20/16.
--- NOTE | 2016-11-19 14:31 | NUR ---
Significant Event: Disoriented x 2. Up with 1A walker and gait belt. Impulsive. Alarms at all times. Accuchecks ACHS. 136 and 218 this shift. VSS. Denies pain. Left side slightly weaker. Cooperative with cares. Follow up:
--- NOTE | 2016-11-20 02:59 | NUR ---
Significant Event: Patient is alert and disoriented to time and place. VSS. Is pleasantly confused. Denies pain or discomfort. Up one assist with GB/walker. Needs to be alarmed at all times and can not be left alone in the bathroom. Is incontinent of bladder so needs to be assisted to the bathroom every 2-3 hrs. Accu checks AC&HS. Last night was 200. Follow up: Discharge today.
--- NOTE | 2016-11-20 09:49 | NUR ---
Significant Event: Patient alert to self only. Disoriented to time and place. Pleasantly confused. Needs verbal cues for all cares. 1 assist. Impulsive at times so needs alarms. Accuchecks with s/s insulin. Abrasion to left johansen that is covered with a bandaid. Will go to [facility] swing[facility] today. Follow up:
--- NOTE | 2016-11-20 11:42 | NUR ---
D: TR progress note for 11/20/16. I: Pt seen for 2 units at 1104 in group session for education on relaxation techniques, stress/pain management, coping strategies, group participation and leisure education. R: Pt seen for functional skills building working on relaxation techniques, stress/pain management, continued education on coping skills and group interaction to promote recovery and increase knowledge of coping strategies. Pt actively participated in session, completed functional social communication skills min assist which involved personal introduction of self and identification of ways he dealt with pain/stress prior to hospitalization. Education completed by verbal discussion and modeling on the signs and symptoms the physical stress/pain can cause on the body and it's affects along with identification of coping strategies, relaxation techniques using music, playaways, aromatherapy, breathing exercises and leisure activities. P: Will continue to see to address goals and plan of care.
--- NOTE | 2016-11-21 13:47 | NUR ---
D: Plastics Process Hand Team Conference Follow up for 11/19/16 and Discharge Note for 11/20/16 I: Input from patient/family R: Met with: patient, family, Torri Cates SIX SIGMA BLACK BELT ENGINEER Discussed rehab plan, patient progress, discharge plan and estimated length of stay of d/c planned on 11/20/16 with [facility] in [place], [place]. Patient/Family Preference: In agreement. Anticipated discharge disposition: swing bed. Paula Prado to transport. Education completed: Education was completed with patient regarding length of stay, progress in therapy and d/c plan. Assessment/Recommendation: Team recommends d/c to SNF level of care. P: Case Coordination: Set up patient to go to [facility] in [place], [place]. Patient has good family support. Johan transporting. Nurse to nurse and doctor to doctor was completed. Will call to see how patient is doing next week.
== END 2016-11-20 13:45 | DRG 57 ==
LOC: GIRP 10:24
PROVIDERS: ADMIT Physical Medicine & Rehabilitation
PROC: F08Z0FZ Bathing/Showering Techniques Treatment using Assistive, Adaptive, Supportive or Protective Equipment (ICD-10-PCS; principal; 2016-10-24)
PROC: F06Z6ZZ Communicative/Cognitive Integration Skills Treatment (ICD-10-PCS; principal; 2016-10-24)
PROC: F08Z1FZ Dressing Techniques Treatment using Assistive, Adaptive, Supportive or Protective Equipment (ICD-10-PCS; principal; 2016-10-24)
PROC: F07Z9YZ Gait Training/Functional Ambulation Treatment using Other Equipment (ICD-10-PCS; principal; 2016-10-24)
PROC: F08Z2FZ Grooming/Personal Hygiene Treatment using Assistive, Adaptive, Supportive or Protective Equipment (ICD-10-PCS; principal; 2016-10-24)
DX: I69.154 Hemiplegia and hemiparesis following nontraumatic intracerebral hemorrhage affecting left non-dominant side (principal); I69.190 Apraxia following nontraumatic intracerebral hemorrhage; R41.4 Neurologic neglect syndrome; E11.9 Type 2 diabetes mellitus without complications; I69.390 Apraxia following cerebral infarction; I69.192 Facial weakness following nontraumatic intracerebral hemorrhage; I69.111 Memory deficit following nontraumatic intracerebral hemorrhage; I69.198 Other sequelae of nontraumatic intracerebral hemorrhage; R26.81 Unsteadiness on feet; I25.10 Atherosclerotic heart disease of native coronary artery without angina pectoris; I10 Essential (primary) hypertension; E78.5 Hyperlipidemia, unspecified; R32 Unspecified urinary incontinence; Z79.4 Long term (current) use of insulin
CPT/HCPCS: J1650

== ENCOUNTER 2016-11-27 10:00 | Observation (INO) | payer MEDICARE, BC ==
[~2016-11-27] VITALS: Ht 172.7 cm; Wt 76.4 kg
--- NOTE | ~2016-11-27 | ENPV ---
Carotid Duplex Study Demographics Patient Name AMANDA OTT Date of Study 11/27/2016 Patient Number [id number] Gender Male Date of 1935 Age 81 Visit Number [id number] Height Accession Number [id number] Weight Room Number [id number] BSA BMI Referring Claudio Tolliver MD Physician Physician Physician Ordering Claudio Bermeo Preschool Director Physician Uat Tester Korey Eddy [facility] Conclusions Summary The right internal carotid artery has mild, 1-39%, plaque and stenosis. The right vertebral artery is present with antegrade flow. The left internal carotid artery has mild, 1-39%, plaque and stenosis. The left vertebral artery is present with antegrade flow. Procedure Type of Study: Cerebral:Carotid, Carotid Doppler Bilateral. Additional Indications:confusion weakness Altered mental status Appropriate Use Criteria:9 Patient Status:Routine. Study Location:Inpatient Portable. Technical Quality:Adequate visualization. Velocities are measured in cm/s ; Diameters are measured in cm Carotid Right Measurements Carotid Left Measurements + +--------+--------+ + + + +--------+ --------+ + + !Location !PSV !EDV !Angle !%Stenosis ! !Location !PSV ! EDV !Angle !%Stenosis ! + +--------+--------+ + + + +--------+ --------+ + + !Prox CCA !96 !10 !46 ! ! !Prox CCA !60 ! 9 !46 ! ! + +--------+--------+ + + + +--------+ --------+ + + !Dist CCA !70 !9 !46 ! ! !Dist CCA !53 ! 10 !46 ! ! + +--------+--------+ + + + +--------+ --------+ + + !Prox ICA !43 !10 !56 ! ! !Prox ICA !56 ! 13 !60 ! ! + +--------+--------+ + + + +--------+ --------+ + + !Dist ICA !57 !10 !56 ! ! !Dist ICA !94 ! 24 !60 ! ! + +--------+--------+ + + + +--------+ --------+ + + !Prox ECA !152 ! !46 ! ! !Prox ECA !135 ! !46 ! ! + +--------+--------+ + + + +--------+ --------+ + + !Vertebral !51 ! !46 ! ! !Vertebral !57 ! !56 ! ! + +--------+--------+ + + + +--------+ --------+ + + !Subclavian !258 ! ! ! ! !Subclavian !216 ! ! ! ! + +--------+--------+ + + + +--------+ --------+ + + - There is antegrade vertebral flow noted on the right side. - There is antegrade verte bral flow noted on the left side. - Add'l Measurements:ICAPSV/CCAPSV 0.59.ICAEDV/CCAEDV 1.04. - Add'l Measurements:ICAPS V/CCAPSV 1.57.ICAEDV/CCAEDV 2.64. Impressions Right Impression Elevated subclavian velocity (258 cm/s). Left Impression Elevated subclavian velocity (216 cm/s). Signature dtt: ISATU LOPES dtsarah: 11/27/16 1429 Physician Self Edit
--- NOTE | ~2016-11-27 | HP ---
PATIENT'S NAME: AMANDA OTT [facility] AGE: 81 Y [address] ROOM: [place] [address] LOCATION: [facility] ADMIT DATE: 11/27/2016 History & Physical DISCHARGE DATE: FAMILY PHYSICIAN: PHYSICIAN, UNKNOWN ATTENDING PHYSICIAN: LAURIE MONTGOMERY DATE OF SERVICE: CHIEF COMPLAINT: Confusion. 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 He was taken to the local emergency department where a CAT scan was done which did show acute on subacute stroke in the right parietal and frontal territory in the same area where he had the stroke 2 months ago. He was transferred here given this. On my encounter, he is pleasant. He is lying comfortably. He is answering all questions appropriately. He denied any headache, any trouble with the eyes, any trouble swallowing, any chest pain, any shortness of breath, any headache, any fever, any chills, any PND, orthopnea, or leg swelling. He said he does not know why he was taken to the emergency department. He complained that he has not been home for over 2 months now and does not have a good quality of sleep and can get confused with that. REVIEW OF SYSTEMS: All other systems reviewed and were negative except as mentioned in the HPI. ALLERGIES: NO KNOWN DRUG ALLERGIES. PAST MEDICAL HISTORY: Type 2 diabetes mellitus, hypertension, hyperlipidemia, and CVA. FAMILY HISTORY: Significant for diabetes in brother and sister. SOCIAL HISTORY: Never a smoker[place] living facility. PATIENT'S NAME: AMANDA OTT [facility] AGE: 81 Y [address] ROOM: [place] [id number] LOCATION: [facility] ADMIT DATE: 11/27/2016 History & Physical DISCHARGE DATE: FAMILY PHYSICIAN: PHYSICIAN, UNKNOWN ATTENDING PHYSICIAN: LAURIE MONTGOMERY MEDICATIONS: Medications are being reconciled right now. PHYSICAL EXAMINATION: VITAL SIGNS: Blood pressure on my evaluation is 117/57, heart rate of 73, respiratory rate of 27, and saturating above 90% on room air. GENERAL: No acute distress. Alert and oriented x3. HEENT: Head: Atraumatic, normocephalic. Eyes: Nonicteric. No pallor. Oropharynx: Moist mucous membranes. CARDIOVASCULAR: S1 and S2. No murmur, gallops, or rub. LUNGS: Clear to auscultation bilaterally. ABDOMEN: Soft, nontender, and nondistended. Bruises of subcutaneous administration of insulin noted. Bowel sounds are present. EXTREMITIES: No clubbing, cyanosis, or edema. NEUROLOGIC: Cranial nerves 2 through 12 intact. No motor or sensory deficit noted. Power 5/5 in all extremities. PSYCHIATRIC: Normal affect, mood, and speech. LABORATORY AND DIAGNOSTIC DATA: CAT scan from the outside facility showed acute on subacute infarct in the right MCA territory. Lab work from the outside facility including CBC and a CMP are essentially unremarkable. ASSESSMENT: 1. Confusion, etiology unknown at this point. 2. Acute encephalopathy. 3. History of cerebrovascular accident. 4. Type 2 diabetes mellitus. 5. Hypertension. 6. Hyperlipidemia. PLAN: We are going to admit this patient for observation. At this point, no clinical signs of stroke. I went and discussed the case with radiologist, Dr. Vaz, and compared the previous CAT scan and this CAT scan. Dr. Vaz said today what the findings he is seeing on the CAT scan are the expected evolutionary changes from the previous scans. Given he does not have any clinical signs of strokes on my assessment, I do not think it merits to go ahead and do an MRI at this point. I discussed with the family, and they would like to have a neurologist see the patient. He did have MRA of the brain previously on the previous admission which was negative. He also underwent a transesophageal echocardiogram which was negative. I was unable to find the records for carotid Dopplers if ever done. We will try to recover those records, and if not, we will go ahead and do carotid Dopplers. Meanwhile, we will get an EKG, 12-lead; one set of troponin; and urinalysis as PATIENT'S NAME: AMANDA OTT [facility] AGE: 81 Y [address] ROOM: [place] [address] LOCATION: [facility] ADMIT DATE: 11/27/2016 History & Physical DISCHARGE DATE: FAMILY PHYSICIAN: PHYSICIAN, UNKNOWN ATTENDING PHYSICIAN: LAURIE MONTGOMERY well. Activity as tolerated. Diet: Cardiac diet after bedside swallow evaluation is done. Sliding scale insulin. SCDs for DVT prophylaxis right now. We will follow this patient. Neurology consultation has been obtained. MD LOREE CRENSHAW/connie /[id number] D: 335 T: 908 HISTORY & PHYSICAL
--- NOTE | ~2016-11-27 | CON ---
PATIENT'S NAME: AMANDA PETERS [facility] AGE: 81 Y [address] ROOM: [id number] [place], [place] [address] LOCATION: [facility] ADMIT DATE: 11/27/2016 Consultation DISCHARGE DATE: FAMILY PHYSICIAN: PHYSICIAN, UNKNOWN ATTENDING PHYSICIAN: LAURIE MONTGOMERY DATE OF CONSULTATION: 11/27/2016 TIME SEEN: 07:00 p.m. HISTORY OF PRESENT ILLNESS: Mr. Peters is a very high functioning 81-year-old male patient who had an admission back in September where he presented with acute onset of left-sided weakness. The patient was sent to [facility] with acute symptoms and received tPA. The patient likely improved from the standpoint of receiving the tPA such that he only had some mild left hemiparesis. Post stroke, he basically did very well and he first did rehab at our facility and now went to a swing bed at [facility]. The etiology for the stroke back in September was unclear. His carotid arteries were within normal limits. We monitored him on the teletypesetter monitor and there was no evidence of any atrial fibrillation. Types of large stroke such as the one that he had often into a large territory are often associated with embolic features. However, no evidence of any arrhythmia has been found. Furthermore, an echocardiogram was essentially within normal limits. There was no evidence of any PFO. There was no evidence of any thrombus in the atria and no evidence of any thrombus in the ventricle and he had an excellent ejection fraction. The patient is here currently after he was transferred from the swing bed at [facility] for some episodes of acute confusion during the course of the evening. It was not well-documented presently and his daughter cannot really give us much more information. Apparently, he began to have some confusion and perhaps was not answering questions appropriately. He is currently here fully cognizant and he made a good recovery upon him arriving at this hospital. When the hospitalist saw him, they noted that he was back to his baseline mental status. He did not display any new stroke symptoms such as new weakness and there were no cortical neglect signs. PRIOR MEDICAL HISTORY: History of type 2 diabetes, hypertension, hyperlipidemia. Again, the recent right MCA stroke back in September of this year. FAMILY HISTORY: Significant for diabetes in brother and sister. SOCIAL HISTORY: PATIENT'S NAME: AMANDA PETERS [facility] AGE: 81 Y [address] ROOM: [id number] [place], [place] [address] LOCATION: [facility] ADMIT DATE: 11/27/2016 Consultation DISCHARGE DATE: FAMILY PHYSICIAN: PHYSICIAN, UNKNOWN ATTENDING PHYSICIAN: LAURIE MONTGOMERY He never smokes. He is currently in a swing bed rehab-type facility. He may be there upwards of 2-3 months. CURRENT MEDICATIONS: Include: 1. Amlodipine 5 mg p.o. daily. 2. Aspirin 81 mg daily. 3. Atenolol 50 mg p.o. daily. 4. Glimepiride 4 mg p.o. every day. 5. Hydrocodone/acetaminophen 1 tablet p.o. q.6 hours p.r.n. pain. 6. Lisinopril 30 mg p.o. daily. 7. Metformin 500 mg twice a day. REVIEW OF SYSTEMS: The patient presents with a brief confusion state apparently over the course of the nighttime. The daughter, who is presently with us, does not state that he has any evidence for dementia and no history of delirium that we can attest to. There is no recent history of delusional thoughts. The confusion state did not involve apparently any aphasia. The patient has no slurring of speech and his language is excellent. His neurologic exam is essentially benign and he was walking well. He did not display any cortical signs of neglect. PHYSICAL EXAMINATION: GENERAL: This is a healthy-appearing 81-year-old male patient who is in excellent mental status. He looks younger than his stated age. NEUROLOGICAL: Cranial nerves 2 through 12 were intact. His motor exam revealed no pronator drift. There is full power in the proximal and distal muscles of the upper and lower extremities. His reflexes are symmetric and +1 at the biceps, triceps, and brachioradialis. Patellar and ankle jerk reflexes and plantar reflex is downgoing. The patient has a negative Romberg. He did demonstrate that he could stand up, slightly wide-based stance due to being cautious, but otherwise he ambulated fairly quickly, a bit too quickly and generally tends to want to get up and walk somewhat. He tends to be somewhat rambunctious, but this is not consistent with the patient being able to control his gait. His gait appeared to show no evidence of increased stiffness and he had normal arm swing. There was normal tone in the limbs. From gross testing of the mini-mental status test, he scored excellent score of 24/30 and he probably could have done even better. This is an excellent score and his memory was intact and even short-term memory, I thought was appropriate. From a standpoint of the patient having any other stroke symptoms, I do not believe that this is the case with him. He does not appear to have any new focal weakness or aphasia. We did do bilateral carotid arteries test today and they again look to be normal. No evidence of stenosis. PATIENT'S NAME: AMANDA PETERS [facility] AGE: 81 Y [address] ROOM: [id number] [place] [id number] LOCATION: [facility] ADMIT DATE: 11/27/2016 Consultation DISCHARGE DATE: FAMILY PHYSICIAN: PHYSICIAN, UNKNOWN ATTENDING PHYSICIAN: LAURIE MONTGOMERY PLAN: Based upon the patient having this past stroke, he should continue on the medications that was given to him, that being Lipitor 80 mg daily for plaque stabilization, even though there again is no evidence of critical stenosis. Also, aspirin 81 mg daily. Finally, again, from the standpoint of the etiology of the stroke itself, he certainly does have some partial and increased risk for a stroke with diabetes and hypertension, but is fairly a large territory stroke, we should always consider an event monitor perhaps that he could have on board for 1 month's time to rule out any evidence of atrial fibrillation. Perhaps, at the facility where he is, they could intermittently check his rhythm after a few days and perhaps a local pulverizer feeder either within his area can set him up with an event monitor for 1 month's time. I did give the patient our card that he could follow up if he wants to with our clinic and we could certainly set that up here. If the patient has any questions, the patient or the daughter can always call the Neurology Service. The patient is stable for discharge this evening. MD MONTEZ LANE/connie /[id number] d: 11/28/16 0047 t: 12/04/16 1129, CONSULTATION REPORT
--- NOTE | ~2016-11-27 | DS ---
PATIENT'S NAME: AMANDA OTT [facility] AGE: 81 Y [address] ROOM: [id number] [place], [place] [address] LOCATION: [facility]ICU ADMIT DATE: 11/27/2016 Discharge Summary DISCHARGE DATE: FAMILY PHYSICIAN: Physician, Unknown ATTENDING PHYSICIAN: Carlos Manuel Snyder FINAL DIAGNOSES: 1. Acute encephalopathy. 2. Recent right MCA CVA status post tPA with hemorrhagic conversion. 3. Essential hypertension. 4. Dyslipidemia. 5. Diabetes mellitus, non-insulin using. REASON FOR ADMISSION: The patient had presented to the outside facility with confusion and initial CT scan there did appear to have an acute stroke on top of his previous CVA. He was transferred here for further evaluation. LABORATORY DATA: No laboratory was done here. RADIOLOGY STUDIES: No radiology studies. CARDIOVASCULAR STUDIES: His carotid Doppler showed that he had less than 40% stenosis bilaterally. HOSPITAL COURSE: The patient was admitted on an observation status. He was seen in consultation by Dr. Davison from a neurologic standpoint. Dr. Davison did not find any new deficits. He did overall feel that he had some encephalopathy or confusion due to his previous stroke. There was nothing acute found. Carotid Dopplers were completed which did not show any evidence of obstruction. There was some thought that he may be having an intermittent arrhythmia and may be having a TIA type symptoms and therefore Dr. Davison recommended that after discharge from the swing bed, an acute event recorder might be warranted. DISCHARGE INSTRUCTIONS: He is discharged back to the [facility]. He is on a diabetic diet, 7000-4856 calorie. Have PT, OT, and speech therapy. Weightbearing as tolerated. Accu-Cheks before meals and at bedtime. His medications with no changes. 1. Atenolol 50 mg daily. 2. Amaryl 4 mg daily. 3. Zestril 30 mg daily. 4. Glucophage 500 mg twice daily. 5. Norvasc 5 mg daily. 6. Aspirin 81 mg daily. 7. [place] 5/325 one every 6 hours as needed for pain. PATIENT'S NAME: AMANDA OTT [facility] AGE: 81 Y [address] ROOM: [id number] [place], [place] [address] LOCATION: [facility]ICU ADMIT DATE: 11/27/2016 Discharge Summary DISCHARGE DATE: FAMILY PHYSICIAN: Physician, Eryn ATTENDING PHYSICIAN: Carlos Manuel Snyder LIN BLACKWELL MD LAW/modl /[id number] CC: Oralia Lane PA-C d: 11/28/16 1052 t: 12/05/16 1820, DISCHARGE SUMMARY
[2016-11-27] MEDS ORDERED: ASPIRIN (CHILDR81 MG PO (12:41)
[2016-11-27] MEDS ORDERED: NORCO 5-325 TA1 EACH PO (12:43)
--- NOTE | 2016-11-27 14:36 | NUR ---
PT HAS HX OF STROKE AND WAS HERE FOR SOME TIME IN SEPTEMBER. HE TRANSFERED TO [facility] SWING BED FOR A FWE WEEKS. THIS MORNING THEY SAID THEY WOKE HIM AT 0400 FOR A DAILY WEIGHT AND HE HAD INCREASED CONFUSION AND WEAKNESS HE HAD A CT THERE WHEN THEY SAID THERE WERE CHANGES AND WAS TRANSFERED TO [facility]. PT HAS HX OF STROKE AND HTN. COCHLEAR IMPLANTS FOR SURGERIES.
[2016-11-27 15:13] LABS: BILIRUBIN URINE NEGATIVE (NEGATIVE); BLOOD URINE NEGATIVE /UL (NEGATIVE); COLOR URINE YELLOW (YELLOW); GLUCOSE URINE 1000 mg/dL (NEGATIVE); KETONE URINE NEGATIVE (NEGATIVE); LEUKOCYTES URINE NEGATIVE /UL (NEGATIVE); NITRITE URINE NEGATIVE (NEGATIVE); PROTEIN URINE NEGATIVE (NEGATIVE); TURBIDITY URINE CLEAR (CLEAR); UROBILINOGEN URINE NORMAL (NORMAL)
--- NOTE | 2016-11-27 16:55 | NUR ---
A&O-FORGETFUL/IMPULSIVE. 1PA UNSTEADY-GB/WALKER. SBP 130'S-150'S. HR 60'S-90'S NSR. RA. AFEBRILE. NO C/O PAIN. NIH 0. DENIES N/T. PERRLA 2MM/BRISK. BM TODAY. VOIDS PER BR. LS CLEAR. FAMILY AT BEDSIDE. PLAN HOME TONIGHT OR TOMORROW.
--- NOTE | 2016-11-28 05:31 | NUR ---
Significant Event:Patient is A/O to self et time, forgetful at times but reorients easily. Impulsive at times, attempts to self transfer et removes monitoring equipment. Sats >90% on RA, LS clear. BS x4. Incontinenet of urine x1, urinal at bedside. Alva in room to visit patient, both state it would be ok to DC back to swing bed, case management notified. Follow up: DC to swing bed
--- NOTE | 2016-11-28 13:05 | NUR ---
I got a call this am around 0800 that pt will be ready to return back to [facility]. I did fax initial information and called and spoke with Harmony Mcknihgt. SHe did get the information and no he did not have another stroke per md's and he is ready to return. He is observation status here and I did let them know this. I then spoke with her and Oralia Hartmann number is [phone] Barboza know to call her. I then spoke with Edita Eddy the POA [phone] and did discuss that he was Observation and did a verbal Bermeo. I asked about transportation and she was wondering about ambulance and I explained he does not have a medical need and most likely will not be covered but could also set up an ambulance if needed. She states she is working and will talk with them if picking him up at 6 would be ok. I then got a call from [facility] and they are fine with getting later tonite. I updated nursing and Hawa RN will call report.
--- NOTE | 2016-11-28 16:17 | NUR ---
PT ALERT, D/O TO TIME AND PLACE. NO FOCAL DEFICITS, EQUAL STRENGTH T/O. USES WALKER AND GAIT BELT WITH 1PA TO MOBILIZE, UP FOR WALK IN HALLS TODAY AND TO SHOWER. INCONTINENT OF URINE AT TIMES, ONE LARGE BM THIS AM. TOLERATED DIET WELL W/OUT ANY NAUSEA. DENIES H/A, SOB, MARTIN, CP, OR BURNING UPON URINATION. NO LABS OR DIAGNOSTIC STUDIES DONE TODAY, CAROTID DOPPLERS SHOWING LESS THAN <40% BLOCKAGE BILATERALLY. PIV X1 TO BE DC'D PRIOR TO DISMISSAL TO SB WITH VAL. VSS, AFEBRILE, NO EDEMA, AND PULSES 2+ T/O, ON RA WITH LS CLEAR.
== END 2016-11-28 17:40 | disposition swing bed (61) ==
LOC: GICU 10:00
PROVIDERS: ADMIT Internal Medicine
DX: G93.40 Encephalopathy, unspecified (principal); I10 Essential (primary) hypertension; E78.5 Hyperlipidemia, unspecified; E11.9 Type 2 diabetes mellitus without complications; R41.0 Disorientation, unspecified; Z86.73 Personal history of transient ischemic attack (TIA), and cerebral infarction without residual deficits; Z79.82 Long term (current) use of aspirin; Z79.899 Other long term (current) drug therapy
CPT/HCPCS: G0378